=== PATIENT | female | born 1950 | race Caucasian/White ===

== ENCOUNTER → 2016-08-16 | Outpatient (CLI) | payer MEDICARE ==
[2016-08-16 07:07] LABS: Blood Urea Nitrogen 11 mg/dL (7-17); Non-African American GFR(MDRD) >60 (>60 ml/min/1.73 sqM)
--- NOTE | 2016-08-16 08:59 | CT ---
EXAMINATION TYPE: CT abdomen pelvis w con DATE OF EXAM: 08/16/2016 REFERENCE: NONE HISTORY: R10.31 RLQ pain HISTORY: RLQ pain REFERENCE: NONE CT DLP: 1977.4 mGy Automated exposure control for dose reduction was used. TECHNIQUE: Helical acquisition through the abdomen and pelvis was obtained following the oral ingesti on of with Oral Contrast and following intravenous administration of 100 mL of Omnipaque 300. The agata a was reformatted in axial, coronal and sagittal projections. FINDINGS: Visualized portions of the lungs are clear. There is no pleural or pericardial fluid. The heart is not enlarged. Within the abdomen, there is mild fatty infiltration of the liver. The gallbladder is been removed. T he spleen is unremarkable. There is a small splenule just inferior to the inferior tip of the spleen. Both adrenal glands are normal. Both kidneys demonstrate function and appear morphologically normal. The pancreas is unremarkable. There is no significant retroperitoneal, iliac or inguinal adenopathy. The uterus and ovaries are normal. The bladder is unremarkable. There is diverticular change involving the sigmoid colon with scattered diverticula elsewhere through out the left side of the colon. The appendix is unremarkable. Small bowel loops are normal. There is no free fluid and no free air identified. There is mild hypertrophic spondylosis within the spine. There is facet arthropathy in the lower lumb ar spine. No bony destructive lesion is seen. IMPRESSION: 1. MILD FATTY INFILTRATION OF THE LIVER. 2. NORMAL APPENDIX. 3. UNCOMPLICATED DIVERTICULOSIS OF THE LEFT SIDE OF THE COLON. 4. DEGENERATIVE CHANGE WITHIN THE SPINE.
== END ==
LOC: RADCTMAIN 06:35
PROVIDERS: ATTEND Surgery
DX: K57.30 Diverticulosis of large intestine without perforation or abscess without bleeding (principal); K76.0 Fatty (change of) liver, not elsewhere classified
CPT/HCPCS: 82565; 84520; 74177; 36415; Q9967

== ENCOUNTER → 2019-11-09 | Outpatient (CLI) | payer MEDICARE ==
--- NOTE | 2019-11-13 09:15 | PE ---
EXAMINATION TYPE: PET CT fusion skull to thigh DATE OF EXAM: 11/09/2019 COMPARISON: Outside institution CT chest abdomen pelvis 11/15/2017 Prior PET/CT: None at our institution HISTORY: Endometrial cancer TECHNIQUE: Following the intravenous administration of 10.86 mCi of F-18 FDG, whole body images are performed from the skull base to the midthigh. Images are reviewed on the computer in the coronal, a xial, and sagittal planes. Reconstructed rotating images are created on independent workstation and reviewed on the computer. A localization and attenuation correction CT is performed in conjunction with the PET scan. SCAN: Subsequent Scan Blood glucose: 138 mg/dL FINDINGS: NECK: No abnormal hypermetabolic activity. THORAX: No abnormal hypermetabolic activity. ABDOMEN/PELVIS: Within the left pelvic wall there is a 2.2 x 3.3 cm hypermetabolic soft tissue mass ( 3:206), which is anterolateral to the rectum with loss of fat plane and appears contiguous with the l eft vaginal cuff, and not seen on 11/15/2017 CT comparison. OSSEOUS STRUCTURES: No abnormal hypermetabolic activity. No aggressive osseous destructive lesions. LOCALIZATION CT: Fluid density within the mediastinum likely represents small focal pericardial fluid within a superio r recess, not lymphadenopathy, and demonstrates no hypermetabolic activity. No evidence of lung mass or pleural effusion. Status post hysterectomy and oophorectomy. Left common iliac enlarged lymph node measures 1.7 x 1.9 c m with no hypermetabolic activity (3:179), previously measuring 2.1 x 2.4 cm on 11/15/2017 comparison. Degenerative changes of the spine. IMPRESSION: 1. 2.2 x 3.3 cm hypermetabolic soft tissue mass of the left pelvic wall most likely recurrent/metasta tic endometrial cancer, which is new from 11/15/[address] comparison[address] No prior PET CTs available for comparison. The mass is contiguous with the left vaginal cuff, and contacts the anterolateral lef t rectum with loss of fat plane. 2. Left common iliac enlarged lymph node measures 1.7 x 1.9 cm, with no hypermetabolic activity, is d ecreased in size versus 11/15/2017 comparison. 3. No evidence of metastatic disease within the neck, thorax, or osseous structures.
== END | disposition home or self-care (01) ==
LOC: RADPETMAIN 15:39
PROVIDERS: ATTEND Internal Medicine Hematology & Oncology
DX: R19.00 Intra-abdominal and pelvic swelling, mass and lump, unspecified site (principal); R59.0 Localized enlarged lymph nodes; C54.1 Malignant neoplasm of endometrium
CPT/HCPCS: 78815; A9552

== ENCOUNTER → 2019-12-28 | Outpatient (CLI) | payer MEDICARE ==
[2019-12-28 12:28] LABS: African American GFR (CKD) >90 (>60 ml/min/1.73 sqM); Blood Urea Nitrogen 11 mg/dL (7-17); Non-African American GFR(CKD) >90 (>60 ml/min/1.73 sqM)
--- NOTE | 2019-12-28 18:12 | CT ---
EXAMINATION TYPE: CT ChestAbdPelvis w con DATE OF EXAM: 12/28/2019 COMPARISON: PET/CT 11/09/2019 HISTORY: No complaints at time of scan. Follow up cancer. Endometrial cancer. CT DLP: 1996.2 mGycm Automated exposure control for dose reduction was used. CONTRAST: CT scan of the chest, abdomen and pelvis is performed with Oral Contrast and with IV Contrast, patien t injected with 100 mL of Isovue 300. FINDINGS: LUNGS: Lungs are grossly clear. No concerning parenchymal mass or nodule identified. There is a 2 mm pulmonary nodule of the right lower lobe (4:38) which is unchanged versus 11/15/2017 CT comparison and most likely benign. No pleural effusion. No pneumothorax. The tracheobronchial tree is patent. MEDIASTINUM/SOFT TISSUES: No axillary, hilar, or mediastinal lymphadenopathy greater than 1 cm. Cardi ac size is normal. No pericardial effusion. No thoracic aortic aneurysm. LIVER: Normal. BILIARY SYSTEM: Status post cholecystectomy. No intrahepatic or extrahepatic biliary ductal dilatatio n. PANCREAS: Normal. SPLEEN: Normal. Splenule. ADRENALS: Normal. KIDNEYS: Normal. BOWEL: No evidence of obstruction or thickening. Left pelvic soft tissue mass again abuts the daksha lateral left mid rectum with loss of fat plane, and questionable invasion within the rectal wall (3:1 01). Colonic diverticulosis. No acute diverticulitis. Normal appendix. PERITONEUM: No pneumoperitoneum. No free fluid. LYMPH NODES: Left common iliac enlarged lymph node measures 1.9 x 2.0 cm (3:82), unchanged versus PET CT comparison, and decreased versus 12/05/2017 CT comparison. This lymph node was not meta bolically active on 11/09/[address] PELVIS: Decompressed urinary bladder. Status post hysterectomy and oophorectomy. 2.3 x 3.4 cm left pe lvic soft tissue mass contiguous with the left lateral vaginal cuff, pelvic sidewall, and the anterol ateral left mid rectum (3:100). This mass previously measured 2.2 x 3.3 cm on 11/09/[address] compar suzanne and with hypermetabolic. Adjacent inflammatory change of the fat is similar. There is questionab le invasion of the mid anterolateral left rectum (3:101). There is nodular thickening of the inferola teral pelvic wall superolateral to the mass which is unchanged versus 11/09/2019 (3:97). VASCULATURE: No abdominal aortic aneurysm. Moderate calcified atherosclerotic disease. MUSCULOSKELETAL: No aggressive osseous destructive lesions. Degenerative changes of the spine. Calci fication of the left buttock likely injection granuloma. IMPRESSION: 1. Left pelvic mass is similar to minimally increased in size versus PET CT comparison, measuring 2. 3 x 3.4 cm, previously 2.2 x 3.3 cm on 11/09/2019. Questionable invasion of the adjacent anterolateral mid rectal wall. Adjacent peritoneal nodularity of the left pelvic wall is unchanged versus 0. 2. Left common iliac enlarged lymph node unchanged versus 11/09/2019, and decreased versus 11/15/2017. 3. No evidence of metastatic endometrial cancer within the chest, abdomen, or osseous structures.
== END | disposition home or self-care (01) ==
LOC: RADCTMAIN 11:41
PROVIDERS: ATTEND Obstetrics & Gynecology
DX: R59.0 Localized enlarged lymph nodes (principal); C54.1 Malignant neoplasm of endometrium
CPT/HCPCS: 82565; 84520; 71260; 74177; 36415; Q9967

== ENCOUNTER → 2020-08-12 | Outpatient (CLI) | payer MEDICARE ==
--- NOTE | 2020-08-12 17:20 | ECHOF ---
Referral Reason:R60.0 Edema lower extremity MEASUREMENTS -------- HEIGHT: 165.1 cm WEIGHT: 108.9 kg BP: RVIDd: 3.1 cm (< 3.3) IVSd: 1.1 cm (0.6 - 1.1) LVIDd: 4.1 cm (3.9 - 5.3) LVPWd: 1.2 cm (0.6 - 1.1) IVSs: 1.5 cm LVIDs: 2.9 cm LVPWs: 1.6 cm LA Diam: 3.2 cm (2.7 - 3.8) Ao Diam: 3.2 cm (2.0 - 3.7) AV Cusp: 2.0 cm (1.5 - 2.6) MV EXCURSION: 13.644 mm (> 18.000) MV EF SLOPE: 78 mm/s (70 - 150) EPSS: 0.3 cm MV E Dao: 1.03 m/s MV DecT: 204 ms MV A Dao: 1.24 m/s MV E/A Ratio: 0.83 RAP: 5.00 mmHg RVSP: 30.53 mmHg FINDINGS -------- Sinus rhythm. This was a technically difficult study with suboptimal apical views. The left ventricular size is normal. There is borderline concentric left ventricular hypertrophy. Overall left ventricular systolic function is normal with, an EF between 60 - 65 %. The right ventricle is normal in size and function. The left atrium is normal in size. The right atrium is normal in size. Interatrial and interventricular septum intact. The aortic valve is trileaflet, and appears structurally normal. No aortic stenosis or regurgitation. The mitral valve is normal. Mild tricuspid regurgitation present. Right ventricular systolic pressure is normal at < 35 mmHg. The pulmonic valve is normal. The aortic root size is normal. Normal inferior vena cava with normal inspiratory collapse consistent with estimated right atrial pre ssure of 5 mmHg. There is no pericardial effusion. CONCLUSIONS -------- 1. The left ventricular size is normal. 2. There is borderline concentric left ventricular hypertrophy. 3. Overall left ventricular systolic function is normal with, an EF between 60 - 65 %. 4. The aortic valve is trileaflet, and appears structurally normal. No aortic stenosis or regurgitati on. 5. Mild tricuspid regurgitation present. 6. There is no pericardial effusion. [employer]: Sunshine Alvarez RDCS
== END | disposition home or self-care (01) ==
LOC: RADECHMAIN 14:54
PROVIDERS: ATTEND Internal Medicine
DX: I07.1 Rheumatic tricuspid insufficiency (principal)
CPT/HCPCS: 93306

== ENCOUNTER → 2020-08-21 | Outpatient (CLI) | payer MEDICARE ==
--- NOTE | 2020-08-21 16:38 | BD ---
EXAMINATION TYPE: Axial Bone Density DATE OF EXAM: 08/21/2020 COMPARISON: NONE CLINICAL HISTORY: Height: 63 Weight: 239.3 FRAX RISK QUESTIONS: Alcohol (3 or more units per day): no Family History (Parent hip fracture): no Glucocorticoids (More than 3mos): no (Ex: prednisone, prednisolone, methylprednisolone, dexamethasone, and hydrocortisone). History of Fracture in Adulthood: no Secondary Osteoporosis: 1. Type 1 Diabetes: no 2. Hyperthyroidism: no 3. Menopause before 45: no 4. Malnutrition: no 5. Chronic liver disease: no Rheumatoid Arthritis: no Current Tobacco Use: yes RISK FACTORS HISTORY OF: Surgery to Spine/Hip(right/left)/Wrist (right/left): no Family History of Osteoporosis: no Active: no Diet low in dairy products/other sources of calcium: no Postmenopausal woman: age 48 Lost more than 2 inches in height since high school: yes MEDICATIONS: type 2 diabetic meds, breathing meds, anti-depressant Additional History: EXAM MEASUREMENTS: Bone mineral densitometry was performed using the [place] System. Bone mineral density as measured about the Lumbar spine is: ----- L1-L4(G/cm2): 1.096 T Score Values are as follows: ----- L2: -1.6 ----- L3: -0.8 ----- L4: 0.7 ----- L1-L4: -0.7 Bone mineral density baseline Bone mineral density about the R hip (g/cm2): 0.726 Bone mineral density about the L hip (g/cm2): 0.736 T Score values are as follows: -----R Neck: -2.2 -----L Neck: -2.2 -----R Total: -1.3 -----L Total: -1.8 Bone mineral density : baseline IMPRESSION: Osteopenia (T Score between -2.5 and -1). There is slightly increased risk of fracture and the patient may be considered for treatment. Re-Screen 2-5 years. NOTE: T-SCORE=SD OF THE YOUNG ADULT MEAN.
--- NOTE | 2020-08-27 10:49 | MM ---
Reason for exam: screening (asymptomatic). Last mammogram was performed 2 years and 7 months ago. History: Patient is postmenopausal. Physical Findings: A clinical breast exam by your physician is recommended on an annual basis and results should be correlated with mammographic findings. MG 3D Screening Mammo W/Cad Bilateral CC and MLO view(s) were taken. Prior study comparison: January 31, 2018, mammogram. May 25, 2016, mammogram. There are scattered fibroglandular densities. No significant changes when compared with prior studies. ASSESSMENT: Benign, BI-RAD 2 RECOMMENDATION: Routine screening mammogram of both breasts in 1 year.
== END | disposition home or self-care (01) ==
LOC: RADMAMWWP 13:43
PROVIDERS: ATTEND Internal Medicine
DX: Z12.31 Encounter for screening mammogram for malignant neoplasm of breast (principal); Z13.820 Encounter for screening for osteoporosis; M85.80 Other specified disorders of bone density and structure, unspecified site; Z78.0 Asymptomatic menopausal state
CPT/HCPCS: 77063; 77067; 77080

== ENCOUNTER → 2021-09-03 | Outpatient (CLI) | payer MEDICARE, OTHER ==
[~2021-09-03] MED LIST: ONDANSETRON 16 MG in SODIUM CHLORIDE 0.9% 50 ML IVPB ONE; SODIUM CHLORIDE 0.9% 1,000 ML IV ONE; SODIUM CHLORIDE 0.9% 500 ML 500 ML in EMPTY BAG 1 BAG IV PRN
[2021-09-03 10:05] VITALS: BP 87/55; PULSE 93; RESP 16; TEMP 97.8
== END | disposition home or self-care (01) ==
LOC: PROCWHC3 09:40
PROVIDERS: ATTEND Internal Medicine Hematology & Oncology
DX: C54.1 Malignant neoplasm of endometrium (principal)
CPT/HCPCS: 96360; 96361; 96366; J2405

== ENCOUNTER 2021-10-15 13:47 | Inpatient (IN) | payer MEDICARE, OTHER ==
[2021-10-15] MEDS ORDERED: ONDANSETRON 4 MG/2 ML VIAL IVP STA (14:09)
[2021-10-15] MEDS ORDERED: SODIUM CHLORIDE 0.9% 1,000 ML IV STA ×2 (14:09→16:56)
[2021-10-15] MEDS ORDERED: MORPHINE SULFATE 4 MG/ML SYRINGE IV STA (14:09)
[2021-10-15] MEDS ORDERED: diphenhydrAMINE 50 MG/ML 1 ML VIAL IVP STA (14:10)
[2021-10-15 15:10] LABS: Albumin 3.1 g/dL (3.5-5.0); Calcium 8.2 mg/dL (8.4-10.2); Partial Thromboplastin Time 24.4 sec (22.0-30.0); Prothrombin Time 10.8 sec (9.0-12.0); Total Bilirubin 2.6 mg/dL (0.2-1.3)
[2021-10-15 15:11] LABS: Magnesium 1.3 mg/dL (1.6-2.3)
[2021-10-15 15:14] LABS: HCT 26.2 % (34.0-46.0); HGB 9.4 gm/dL (11.4-16.0); MCH 33.4 pg (25.0-35.0); MCHC 35.8 g/dL (31.0-37.0); MCV 93.2 fL (80.0-100.0); Mean Platelet Volume 9.9; RBC 2.81 m/uL (3.80-5.40)
[2021-10-15] MEDS ORDERED: MAGNESIUM SULFATE-D5W PMX 1 GM in DEXTROSE/WATER 1 100ML.BAG IVPB ONE (15:17)
[2021-10-15] MEDS ORDERED: POTASSIUM CHLORIDE ER 20 MEQ TAB.ER PO STA (15:36)
--- NOTE | 2021-10-15 15:46 | XR ---
EXAMINATION TYPE: XR chest 2V DATE OF EXAM: 10/15/2021 COMPARISON: Whole-body CT December 28, 2019 HISTORY: Weakness. History of endometrial cancer. TECHNIQUE: Frontal and lateral views of the chest are obtained. FINDINGS: There is mild chronic parenchymal change bilaterally without suspicious new focal air spac e opacity, pleural effusion, or pneumothorax seen. The cardiac silhouette size is stable and within normal limits with atherosclerotic change aortic knob redemonstrated. The osseous structures are in tact. IMPRESSION: No acute process.
[2021-10-15 15:50] LABS: Platelet Count 87 k/uL (150-450); WBC 0.4 k/uL (3.8-10.6)
[2021-10-15] MEDS ORDERED: NALOXONE 0.4 MG/ML 1 ML VIAL IV PRN (16:54)
[2021-10-15] MEDS ORDERED: SODIUM CHLORIDE 0.9% 500 ML 500 ML IV STA (16:56)
[2021-10-15] MEDS ORDERED: ALBUTEROL NEBULIZED 2.5 MG/3 ML INHALATION PRN ×2 (16:56→17:46)
[2021-10-15] MEDS ORDERED: VANCOMYCIN IV PER PHARMACY 1 EACH MISC MISCELLANE PRN (16:58)
[2021-10-15] MEDS ORDERED: VANCOMYCIN 1,500 MG in SODIUM CHLORIDE 0.9% 250 ML IVPB STA (17:11)
[2021-10-15] MEDS ORDERED: CEFEPIME 2 GM in SODIUM CHLORIDE 0.9% 100 ML IVPB ONE (17:30)
--- NOTE | 2021-10-15 17:51 | ED ---
General Adult HPI - General Chief complaint: Weakness Stated complaint: Dehydration Time Seen by Provider: 10/15/21 14:00 Source: patient, EMS, RN notes reviewed, old records reviewed Mode of arrival: EMS Limitations: no limitations - History of Present Illness Initial comments: Patient is a 71-year-old female with past medical history remarkable for stage IV endometrial cancer currently undergoing chemotherapy, diabetes, asthma who presents emergency Department complaining of intractable nausea, vomiting, diarrhea since last Tuesday. Last Tuesday she did receive her last chemo treatment. Has been having multiple episodes of nonbilious emesis as well as nonbloody diarrhea since that time. Does state that the diarrhea seems to be coming from mostly her bowels, but there is concern for possibly coming from her vagina. This has been ongoing for the last 4-6 weeks. Was due to follow up with her oncologist in [place] regarding it. Does follow up with Dr. Bowman here in [place]. Denies any chest pain, shortness of breath. Denies any headach es. Endorses generalized weakness. Feels dehydrated. States she is thirsty. Presents over concern for worsening symptoms. Endorses generalized abdominal discomfort. It is somewhat chronic for her. - Related Data Home Medications Medication Instructions Recorded Confirmed Calcium Carbonate [Calcium] 600 mg PO DAILY 09/03/21 10/15/21 Cholecalciferol (Vitamin D3) 125 mcg PO DAILY 09/03/21 10/15/21 [Vitamin D3 (125 MCG = 5,000 IU)] HYDROcodone/APAP 5-325MG [[place] 1 tab PO Q4H PRN 09/03/21 10/15/21 5-325] Ondansetron [Zofran] 4 mg PO Q4H PRN 09/03/21 10/15/21 RX: Albuterol Inhaler [Ventolin 2 puff INHALATION RT-Q6H PRN 09/03/21 10/15/21 Hfa Inhaler] RX: Atorvastatin [Lipitor] 10 mg PO HS 09/03/21 10/15/21 RX: Pioglitazone [Actos] 30 mg PO DAILY 09/03/21 10/15/21 Tiotropium 18 Mcg/Puff [Spiriva] 1 puff INHALATION RT-DAILY 09/03/21 10/15/21 Dorzolamide HCl/Pf [Dorzolamide 2% 1 drop BOTH EYES BID 10/15/21 10/15/21 Eye Drop] Gabapentin [Neurontin] 100 mg PO BID 10/15/21 10/15/21 Glimepiride [Amaryl] 2 mg PO HS 10/15/21 10/15/21 Glimepiride [Amaryl] 4 mg PO DAILY 10/15/21 10/15/21 Multivitamins, Thera [Multivitamin 1 tab PO DAILY 10/15/21 10/15/21 (formulary)] Olopatadine HCl [Patanol 0.1%] 1 drop BOTH EYES BID 10/15/21 10/15/21 Quinapril/Hydrochlorothiazide 1 tab PO DAILY 10/15/21 10/15/21 [Quinapril-Hctz 20-25 mg Tab] Allergies Allergy/AdvReac Type Severity Reaction Status Date / Time metformin Allergy Rash/Hives Verified 09/03/21 09:46 Review of Systems ROS Statement: Those systems with pertinent positive or pertinent negative responses have been documented in the HPI. Review of Systems: CONST: Denies fever EYES: Denies blurry vision ENT: Denies nasal congestion C/V: Denies Chest pain RESP: Denies shortness of breath GI: Endorses abdominal pain, nausea, vomiting : Denies dysuria SKIN: Denies rash. MSK: Denies joint pain. NEURO: Denies headache ROS Other: All systems not noted in ROS Statement are negative. Past Medical History Past Medical History: Asthma, Cancer, Diabetes Mellitus, Hyperlipidemia, Osteoarthritis (OA), Pneumonia Additional Past Medical History / Comment(s): ENDOMETRIAL CANCER. History of Any Multi-Drug Resistant Organisms: None Reported Past Surgical History: Cholecystectomy, Hysterectomy, Tubal Ligation Past Anesthesia/Blood Transfusion Reactions: No Reported Reaction Past Psychological History: No Psychological Hx Reported Smoking Status: Current every day smoker Past Alcohol Use History: None Reported Past Drug Use History: Marijuana General Exam - General Exam Comments Initial Comments: General: Appears in no acute distress. Patient is afebrile. HEAD: Normal with no signs of head trauma. EYES: PERRLA, EOMI, conjunctiva normal, no discharge. ENT: Hearing grossly intact, normal oropharynx. RESPIRATORY: Clear breath sounds bilaterally. No wheezes, rales, or rhonchi. C/V: Regular rate and rhythm. S1 and S2 auscultated, no edema, peripheral pulses 2+ and intact throughout ABD: Abdomen is soft, distended. Tender to palpation bilateral lower quadrants, which patient states is somewhat chronic for her. No guarding. No peritoneal signs. No rebound tenderness. EXT: Normal range of motion, no obvious deformity SKIN: No rashes or lesions observed on exposed skin. NEURO: Alert and oriented 4. No focal deficits. Limitations: no limitations Course Vital Signs 10/15/21 10/15/21 13:50 19:27 Temperature 99.0 F Pulse Rate 82 96 Respiratory 18 16 Rate Blood Pressure 114/69 131/67 O2 Sat by Pulse 100 99 Oximetry Medical Decision Making - Medical Decision Making Based on the patient's presentation and physical exam, concern for intractable nausea, vomiting, diarrhea the patient currently undergoing chemotherapy. Is likely secondary to the chemo, however it seems to be worse since her last round of chemo. Did recommend we obtain abdominal laboratory studies as well as symptomatically treated with IV fluids and medications to start. She was in agreement this plan. She is afebrile and has no signs of infection right now. Vital signs are otherwise within normal limits. She was in agreement this plan. Screening EKG 5 and no signs of acute ischemia. No prior EKG for comparison. Laboratory studies are remarkable for a leukopenia of 0.4 which is expected with recent chemotherapy, normocytic anemia with hemoglobin 9.4, thrombocytopenia at 87. These findings are expected with her recent chemo. Patient appears dehydrated with hyponatremia of 125, hypokalemia at 3.0 which is replenished, hypochloremia of 89. Patient is also hypomagnesemia to 1.3 which is replenished. Covid influenza negative. On reevaluation and patient is feeling improved. Discussed with her I would like to admit her. She was in agreement this plan. I did discuss the case with the on-call oncology mid-level provider, Юлия who was in agreement with this plan. We discussed antibiotics, and due to her tenderness, we will start the antibiotics and she was started on broad-spectrum vancomycin and cefepime. Also obtain a CT to further evaluate the patient's diarrhea, she states it may be coming from her vagina. She was due to have an outpatient CT but we will obtain one here. She was in agreement this plan. Spoke with the admitting physician, Dr. George who was in agreement this plan. CT returned and revealed findings consistent for worsening cancer in the colon, as well as a rectovaginal fistula. I discussed the findings with Dr. Owens of surgery. He agreed to consult. Consult was already placed by the admitting team. In the triage note, did state that the patient's feeling suicidal. I did speak with her about this, and she states that with her diagnosis and her treatments, and occasional she does feel suicidal but has no plans or attempts. Did recommend that psychiatry speak with her while she is here and she was in agreement with the plan. Sitter order will be placed. Suicide precautions ordered. Will consult psychiatry. - Lab Data Result diagrams: 10/15/21 14:22 10/15/21 14:22 Lab Results 10/15/21 10/15/21 10/15/21 Range/Units 14:22 14:22 14:22 WBC 0.4 L* (3.8-10.6) k/uL RBC 2.81 L (3.80-5.40) m/uL Hgb 9.4 L (11.4-16.0) gm/dL Hct 26.2 L (34.0-46.0) % MCV 93.2 (80.0-100.0) fL MCH 33.4 (25.0-35.0) pg MCHC 35.8 (31.0-37.0) g/dL RDW 15.0 (11.5-15.5) % Plt Count 87 L (150-450) k/uL MPV 9.9 Neutrophils # (Manual) (1.3-7.7) k/uL PT 10.8 (9.0-12.0) sec INR 1.0 (<1.2) APTT 24.4 (22.0-30.0) sec Sodium 125 L (137-145) mmol/L Potassium 3.0 L (3.5-5.1) mmol/L Chloride 89 L (98-107) mmol/L Carbon Dioxide 25 (22-30) mmol/L Anion Gap 11 mmol/L BUN 34 H (7-17) mg/dL Creatinine 0.80 (0.52-1.04) mg/dL Est GFR (CKD-EPI)AfAm 85 (>60 ml/min/1.73 sqM) Est GFR (CKD-EPI)NonAf 74 (>60 ml/min/1.73 sqM) Glucose 264 H (74-99) mg/dL Plasma Lactic Acid Faheem (0.7-2.0) mmol/L Calcium 8.2 L (8.4-10.2) mg/dL Magnesium 1.3 L (1.6-2.3) mg/dL Total Bilirubin 2.6 H (0.2-1.3) mg/dL AST 19 (14-36) U/L ALT 13 (4-34) U/L Alkaline Phosphatase 83 (38-126) U/L Total Protein 6.0 L (6.3-8.2) g/dL Albumin 3.1 L (3.5-5.0) g/dL Coronavirus (PCR) (Not Detectd) Influenza Type A RNA (Not Detectd) Influenza Type B (PCR) (Not Detectd) 10/15/21 10/15/21 10/15/21 Range/Units 14:22 14:22 14:22 WBC (3.8-10.6) k/uL RBC (3.80-5.40) m/uL Hgb (11.4-16.0) gm/dL Hct (34.0-46.0) % MCV (80.0-100.0) fL MCH (25.0-35.0) pg MCHC (31.0-37.0) g/dL RDW (11.5-15.5) % Plt Count (150-450) k/uL MPV Neutrophils # (Manual) (1.3-7.7) k/uL PT (9.0-12.0) sec INR (<1.2) APTT (22.0-30.0) sec Sodium (137-145) mmol/L Potassium (3.5-5.1) mmol/L Chloride (98-107) mmol/L Carbon Dioxide (22-30) mmol/L Anion Gap mmol/L BUN (7-17) mg/dL Creatinine (0.52-1.04) mg/dL Est GFR (CKD-EPI)AfAm (>60 ml/min/1.73 sqM) Est GFR (CKD-EPI)NonAf (>60 ml/min/1.73 sqM) Glucose (74-99) mg/dL Plasma Lactic Acid Faheem 0.9 (0.7-2.0) mmol/L Calcium (8.4-10.2) mg/dL Magnesium (1.6-2.3) mg/dL Total Bilirubin (0.2-1.3) mg/dL AST (14-36) U/L ALT (4-34) U/L Alkaline Phosphatase (38-126) U/L Total Protein (6.3-8.2) g/dL Albumin (3.5-5.0) g/dL Coronavirus (PCR) Not Detected (Not Detectd) Influenza Type A RNA Not Detected (Not Detectd) Influenza Type B (PCR) Not Detected (Not Detectd) - EKG Data -: EKG Interpreted by Me EKG Comments: 12-lead Electrocardiogram Interpretation Note EKG was reviewed and interpreted by myself. 12-lead ECG performed at 1524 is interpreted by me as revealing normal sinus rhythm at a rate of 87 beats per minute. Patten is normal. ID intervals 119 ms, QRS duration is 130 ms, QTc is 464 ms.. There were no acute ST or T wave abnormalities to suggest myocardial ischemia or injury. His right bundle midpoint. R wave progression across the precordium was satisfactory. By my interpretation this EKG is non-diagnostic for acute ischemia. Critical Care Time Critical Care Time: Yes Total Critical Care Time: 35 Critical Care Time: Upon my evaluation, this patient had a high probability of imminent or life- threatening deterioration due to metastatic cancer, rectovaginal fistula, dehydration, intractable nausea and vomiting, diarrhea, which required my direct attention, intervention, and personal management. I have personally provided 35 minutes of critical care time exclusive of time spent on separately billable procedures. Time includes review of laboratory data, radiology results, discussion with consultants, and monitoring for potential decompensation. Interventions were performed as documented in my note. Disposition Clinical Impression: Intractable nausea and vomiting, Intractable diarrhea, Dehydration, History of cancer, Suicidal ideations, Chronic abdominal pain, Hyponatremia, Hypokalemia, Hypomagnesemia Disposition: ADMITTED IP TO THIS HOSP Condition: Stable Time of Disposition: 16:45
--- NOTE | 2021-10-15 18:22 | P.HPIM ---
History of Present Illness H&P Date: 10/15/21 Chief Complaint: Diarrhea, fevers, chills 71-year-old woman with a history of metastatic endometrial cancer, hypertension, diabetes, hyperlipidemia, glaucoma presented with diarrhea, fevers, chills. Patient says that she got her last chemotherapy treatment approximately a week and a half ago, and since that time she's had worsening diarrhea, chills, fevers and has had poor by mouth intake. She says that she's never had a reaction this bad to her chemotherapy before. She also endorses having stool in her urine and coming through her vagina, which has been present for approximately 4 weeks. She has a history of radiation to the pelvis, but has never had surgery in the area. She's had endometrial cancer for approximately 3 years and has been on multiple chemotherapy regimens, but unfortunately it has progressed. She reports fevers, chills, nausea. She denies vomiting. She denies chest pain, palpitations, syncope, presyncope, cough, dyspnea. She reports abdominal pain, diarrhea. She reports dysuria. She denies melena, hematochezia. She reports numbness of her right arm intermittently. In the emergency room, patient is afebrile, 114/69, heart rate 82, 100% on room air. CBC is significant for pancytopenia with a white blood cell count 0.4, hemoglobin of 9.4, platelet count of 87. Chemistry show hyponatremia and hypokalemia with a sodium of 125, adjusting of 3.0. She also has low magnesium at 1.3. Liver function tests show elevated bilirubin at 2.6, total protein of 6.0, albumin of 3.1. Covid was negative. Influenza A/B were negative. Coags are negative. Chest x-ray was negative for any acute processes, she'll some mild chronic parenchymal change bilaterally. Abdomen/pelvis CT was ordered and read is pending. ER physician contacted oncology who recommended patient be admitted with IV fluids, antibiotics, filgastrim. All Systems reviewed and pertinent positives and negatives noted in HPI, all other symptoms are negative Gen: in no apparent distress, resting comfortably in bed Eyes: PERRL, no scleral injection or icterus HENT: normocephalic, atraumatic, good hearing acuity, dry mucous membranes Neck: no tracheal deviation, full range of motion Resp: good air exchange, breathing comfortably with no accessory muscle use, no tactile fremitus CVS: good distal perfusion x 4, no pitting edema GI: soft, tender to palpation diffusely, worse in the right lower quadrant and left lower quadrant, ND, no hepatosplenomegaly : no suprapubic tenderness, no CVAT, becerril catheter not present MSK: no clubbing, no cyanosis, no noted contractures of extremities Skin: no noted rashes, petechiae; temperature of skin is appropriate Neuro: moving all extremities without signs of weakness, CN II-XII intact Psych: cooperative, euthymic mood, insight and judgment intact Labs and imaging reviewed as above Assessment/plan: Pancytopenia Diarrhea (suspect radiation induced colitis) History of endometrial cancer, metastatic Hyperbilirubinemia -Admit inpatient, telemetry -Daily CBC -Oncology consult -IV fluids -PT/OT -Pending workup, patient will benefit from out of care consult -Pain control -Nausea control Hyponatremia Hypokalemia Hypomagnesemia -Replete as needed -IV fluids Colovesicular fistula Colovaginal fistula (Suspected, pending CT abdomen/pelvis read) -If positive, will consult general surgery Hypertension Diabetes Hyperlipidemia Glaucoma -Home medications reviewed and reconciled -Hold home HCTZ, hold home oral glycemics -LD SSI Past Medical History Past Medical History: Asthma, Cancer, Diabetes Mellitus, Hyperlipidemia, Osteoarthritis (OA), Pneumonia Additional Past Medical History / Comment(s): ENDOMETRIAL CANCER. History of Any Multi-Drug Resistant Organisms: None Reported Past Surgical History: Cholecystectomy, Hysterectomy, Tubal Ligation Past Anesthesia/Blood Transfusion Reactions: No Reported Reaction Past Psychological History: No Psychological Hx Reported Smoking Status: Current every day smoker Past Alcohol Use History: None Reported Past Drug Use History: Marijuana Medications and Allergies Home Medications Medication Instructions Recorded Confirmed Type Albuterol Inhaler [Ventolin Hfa 2 puff INHALATION RT-Q6H PRN 09/03/21 10/15/21 History Inhaler] Atorvastatin [Lipitor] 10 mg PO HS 09/03/21 10/15/21 History Calcium Carbonate [Calcium] 600 mg PO DAILY 09/03/21 10/15/21 History Cholecalciferol (Vitamin D3) 125 mcg PO DAILY 09/03/21 10/15/21 History [Vitamin D3 (125 MCG = 5,000 IU)] HYDROcodone/APAP 5-325MG [[place] 1 tab PO Q4H PRN 09/03/21 10/15/21 History 5-325] Ondansetron [Zofran] 4 mg PO Q4H PRN 09/03/21 10/15/21 History Pioglitazone [Actos] 30 mg PO DAILY 09/03/21 10/15/21 History Tiotropium 18 Mcg/Puff [Spiriva] 1 puff INHALATION RT-DAILY 09/03/21 10/15/21 History Dorzolamide HCl/Pf [Dorzolamide 2% 1 drop BOTH EYES BID 10/15/21 10/15/21 History Eye Drop] Gabapentin [Neurontin] 100 mg PO BID 10/15/21 10/15/21 History Glimepiride [Amaryl] 2 mg PO HS 10/15/21 10/15/21 History Glimepiride [Amaryl] 4 mg PO DAILY 10/15/21 10/15/21 History Multivitamins, Thera [Multivitamin 1 tab PO DAILY 10/15/21 10/15/21 History (formulary)] Olopatadine HCl [Patanol 0.1%] 1 drop BOTH EYES BID 10/15/21 10/15/21 History Quinapril/Hydrochlorothiazide 1 tab PO DAILY 10/15/21 10/15/21 History [Quinapril-Hctz 20-25 mg Tab] Allergies Allergy/AdvReac Type Severity Reaction Status Date / Time metformin Allergy Rash/Hives Verified 09/03/21 09:46 Physical Exam Osteopathic Statement: *. No significant issues noted on an osteopathic structural exam other than those noted in the History and Physical/Consult. Vitals: Vital Signs Temp Pulse Resp BP Pulse Ox 10/15/21 13:50 99.0 F 82 18 114/69 100 Intake and Output 10/15/21 10/15/21 10/15/21 06:59 14:59 22:59 Other: Weight 85.729 kg Results CBC & Chem 7: 10/15/21 14:22 10/15/21 14:22 Labs: Abnormal Lab Results - Last 24 Hours (Table) 10/15/21 10/15/21 Range/Units 14:22 14:22 WBC 0.4 L* (3.8-10.6) k/uL RBC 2.81 L (3.80-5.40) m/uL Hgb 9.4 L (11.4-16.0) gm/dL Hct 26.2 L (34.0-46.0) % Plt Count 87 L (150-450) k/uL Sodium 125 L (137-145) mmol/L Potassium 3.0 L (3.5-5.1) mmol/L Chloride 89 L (98-107) mmol/L BUN 34 H (7-17) mg/dL Glucose 264 H (74-99) mg/dL Calcium 8.2 L (8.4-10.2) mg/dL Magnesium 1.3 L (1.6-2.3) mg/dL Total Bilirubin 2.6 H (0.2-1.3) mg/dL Total Protein 6.0 L (6.3-8.2) g/dL Albumin 3.1 L (3.5-5.0) g/dL
--- NOTE | 2021-10-15 19:15 | CT ---
EXAMINATION TYPE: CT abdomen pelvis w con DATE OF EXAM: 10/15/2021 COMPARISON: 12/28/2019 HISTORY: Abdominal pain, pt hx endometiral ca. States feces coming from vagina and urethra. CT DLP: 1320.5 mGycm Automated exposure control for dose reduction was used. TECHNIQUE: Helical acquisition of images was performed from the lung bases through the pelvis. CONTRAST: Performed without Oral Contrast and with IV Contrast, patient injected with 100 mL of Isovue 300. FINDINGS: LUNG BASES: No significant abnormality is appreciated. LIVER/GB: No significant abnormality is appreciated. Hepatic steatosis and cholecystectomy without si gnificant biliary ductal dilatation. PANCREAS: No significant abnormality is seen. SPLEEN: No significant abnormality is seen. ADRENALS: No significant abnormality is seen. KIDNEYS: Mild bilateral hydronephrosis without obstructing calculi or nephrolithiasis seen. FREE AIR: No free air is visualized RETROPERITONEAL ADENOPATHY: None visualized REPRODUCTIVE ORGANS: No significant abnormality is seen URINARY BLADDER: Mild urinary bladder wall thickening. PELVIC ADENOPATHY: None visualized. OSSEOUS STRUCTURES: No significant abnormality is seen. BOWEL: Moderate to marked circumferential wall thickening of the rectum resulting in luminal narrowi ng. The rectal wall and abuts the vagina. Gas is seen within the vagina, which is nonspecific. There is moderate to large amount of stool in the left colon. Mild fluid distention of the of the ascending and transverse colon. The small bowel loops are within normal limits. Normal appendix. No free air o r significant free fluid. Small fat-containing periumbilical hernia. OTHER: None IMPRESSION: RECTAL WALL THICKENING WITH LUMINAL NARROWING AND RESULTANT STOOL BURDEN AND MILD COLONIC DISTENTION. Findings raise concern for colonic obstruction. Malignancy cannot be excluded. Consider GI consultat ion and/or colonoscopy when feasible. Rectal wall abuts the vagina with gas versus fecal material within the vagina. Findings are concernin g for rectovaginal fistula. However this is better evaluated and can be confirmed with intraluminal c ontrast administration. Bilateral hydronephrosis without obstructing calculi. Considerations include urinary bladder outlet o bstruction versus reactive changes secondary to pelvic pathology. Findings are new compared to prior 2019 study.
[2021-10-15 19:23] LABS: Glucose,Whole Blood 289 mg/dL (70-110)
[2021-10-15] MEDS ORDERED: GLIMEPIRIDE 2 MG TAB PO SCH (21:00)
[2021-10-15] MEDS: metroNIDAZOLE-NS PMX 500 MG in SALINE 1 100ML.BAG IVPB SCH (22:04)
[2021-10-15] MEDS: ONDANSETRON 4 MG/2 ML VIAL IVP PRN (22:05)
[2021-10-15] MEDS: ATORVASTATIN 10 MG TAB PO SCH (22:05)
[2021-10-15] MEDS: GABAPENTIN 100 MG CAP PO SCH (22:06)
[2021-10-15] MEDS: MORPHINE SULFATE 4 MG/ML SYRINGE IVP PRN (22:12)
[2021-10-16] MEDS: FILGRASTIM-SNDZ 480 MCG/0.8 ML SYRINGE SQ SCH ×2 (00:35→18:10)
[2021-10-16] MEDS: DORZOLAMIDE HCL 2% DROPS 10 ML BTL BOTH EYES SCH ×3 (00:36→21:02)
[2021-10-16] MEDS: KETOTIFEN 0.025% OPHTH DROPS 5 ML BTL BOTH EYES SCH ×3 (00:36→21:02)
[2021-10-16] MEDS: metroNIDAZOLE-NS PMX 500 MG in SALINE 1 100ML.BAG IVPB SCH ×5 (00:39→23:27)
[2021-10-16] MEDS: ONDANSETRON 4 MG/2 ML VIAL IVP PRN (04:16)
[2021-10-16] MEDS: MORPHINE SULFATE 4 MG/ML SYRINGE IVP PRN ×2 (04:16→21:09)
[2021-10-16 07:27] LABS: Glucose,Whole Blood 241 mg/dL (70-110)
[2021-10-16] MEDS: GABAPENTIN 100 MG CAP PO SCH ×2 (08:06→21:01)
[2021-10-16] MEDS: INSULIN ASPART (NovoLOG) 100 UNIT/ML VIAL SQ SCH ×3 (08:07→18:10)
[2021-10-16] MEDS: lisinopriL 20 MG TAB PO SCH (08:07)
[2021-10-16] MEDS: CEFEPIME 2 GM in SODIUM CHLORIDE 0.9% 100 ML IVPB SCH ×4 (08:29→21:02)
[2021-10-16] MEDS ORDERED: hydroCHLOROthiazide 25 MG TAB PO SCH (09:00)
[2021-10-16] MEDS ORDERED: PIOGLITAZONE 30 MG TAB PO SCH (09:00)
[2021-10-16] MEDS ORDERED: GLIMEPIRIDE 2 MG TAB PO SCH (09:00)
[2021-10-16] MEDS: VANCOMYCIN 1,500 MG in SODIUM CHLORIDE 0.9% 250 ML IVPB SCH (10:20)
[2021-10-16 10:22] LABS: HCT 25.1 % (37.2-46.3); HGB 8.3 g/dL (12.0-15.0); MCH 30.9 pg (27.0-32.0); MCHC 33.1 g/dL (32.0-37.0); MCV 93.3 fL (80.0-97.0); Mean Platelet Volume 12.6 fL (9.5-12.2); NRBC Per 100 WBC 0 /100 WBCS (0.0-0.0); Platelet Count 58 X 10*3/uL (140-440); RBC 2.69 X 10*6/uL (4.10-5.20); RDW 15.5 % (11.5-14.5); WBC 0.36 X 10*3/uL (4.50-10.00)
[2021-10-16 10:31] LABS: Basophils # (A) 0 X 10*3/uL (0.00-0.10); Basophils % (A) 0 %; Eosinophils # (A) 0.01 X 10*3/uL (0.04-0.35); Eosinophils % (A) 2.8 %; Immature Grans, Automated 0 %; Lymphocytes # (A) 0.21 X 10*3/uL (0.90-5.00); Lymphocytes % (A) 58.3 %; Monocytes # (A) 0.09 X 10*3/uL (0.20-1.00); Neutrophils # (A) 0.05 X 10*3/uL (1.80-7.70); Neutrophils % (A) 13.9 %; RBC Morphology NORMAL
--- NOTE | 2021-10-16 10:36 | P.PN ---
Subjective Progress Note Date: 10/16/21 CT scan from yesterday with concerns for colitis as well as rectovaginal fistula Gen: in no apparent distress, resting comfortably in bed Eyes: PERRL, no scleral injection or icterus HENT: normocephalic, atraumatic, good hearing acuity, dry mucous membranes Neck: no tracheal deviation, full range of motion Resp: good air exchange, breathing comfortably with no accessory muscle use, no tactile fremitus CVS: good distal perfusion x 4, no pitting edema GI: soft, tender to palpation diffusely, worse in the right lower quadrant and left lower quadrant, ND, no hepatosplenomegaly : no suprapubic tenderness, no CVAT, becerril catheter not present MSK: no clubbing, no cyanosis, no noted contractures of extremities Skin: no noted rashes, petechiae; temperature of skin is appropriate Neuro: moving all extremities without signs of weakness, CN II-XII intact Psych: cooperative, euthymic mood, insight and judgment intact Labs and imaging reviewed as above Assessment/plan: Pancytopenia Diarrhea (suspect radiation induced colitis) History of endometrial cancer, metastatic Hyperbilirubinemia -Admit inpatient, telemetry -Daily CBC -Oncology consult -IV fluids -PT/OT -Pending workup, patient will benefit from out of care consult -Pain control -Nausea control -Continue vancomycin, cefepime, flagyl Hyponatremia Hypokalemia Hypomagnesemia -Replete as needed -IV fluids Rectovaginal fistula -General surgery consulted Hydronephrosis - Urology consult Hypertension Diabetes Hyperlipidemia Glaucoma -Home medications reviewed and reconciled -Hold home HCTZ, hold home oral glycemics -LD SSI Objective - Vital Signs Vital signs: Vital Signs Temp 97.7 F 10/16/21 07:21 Pulse 93 10/16/21 07:21 Resp 16 10/16/21 07:21 BP 97/61 10/16/21 07:21 Pulse Ox 96 10/16/21 07:21 FiO2 Intake & Output 10/15/21 10/16/21 10/16/21 18:59 06:59 18:59 Weight 85.729 kg 85.729 kg Other: # Bowel Movements 1 7 - Labs CBC & Chem 7: 10/16/21 05:10 10/15/21 14:22 Labs: Abnormal Lab Results - Last 24 Hours (Table) 10/15/21 10/15/21 10/15/21 Range/Units 14:22 14:22 19:21 WBC 0.4 L* (3.8-10.6) k/uL RBC 2.81 L (3.80-5.40) m/uL Hgb 9.4 L (11.4-16.0) gm/dL Hct 26.2 L (34.0-46.0) % RDW (11.5-14.5) % Plt Count 87 L (150-450) k/uL Plt Count Comment MPV (9.5-12.2) fL Neutrophils # (1.80-7.70) X 10*3/uL Lymphocytes # (0.90-5.00) X 10*3/uL Monocytes # (0.20-1.00) X 10*3/uL Eosinophils # (0.04-0.35) X 10*3/uL Immature Plt Fraction (1.1-6.1) % Sodium 125 L (137-145) mmol/L Potassium 3.0 L (3.5-5.1) mmol/L Chloride 89 L (98-107) mmol/L BUN 34 H (7-17) mg/dL Glucose 264 H (74-99) mg/dL POC Glucose (mg/dL) 289 H (70-110) mg/dL Calcium 8.2 L (8.4-10.2) mg/dL Magnesium 1.3 L (1.6-2.3) mg/dL Total Bilirubin 2.6 H (0.2-1.3) mg/dL Total Protein 6.0 L (6.3-8.2) g/dL Albumin 3.1 L (3.5-5.0) g/dL Stool Occult Blood (Negative) 10/15/21 10/16/21 10/16/21 Range/Units 20:44 05:10 07:21 WBC 0.36 L* (3.8-10.6) k/uL RBC 2.69 L (3.80-5.40) m/uL Hgb 8.3 L (11.4-16.0) gm/dL Hct 25.1 L (34.0-46.0) % RDW 15.5 H (11.5-14.5) % Plt Count 58 L (150-450) k/uL Plt Count Comment DECREASED A MPV 12.6 H (9.5-12.2) fL Neutrophils # 0.05 L* (1.80-7.70) X 10*3/uL Lymphocytes # 0.21 L (0.90-5.00) X 10*3/uL Monocytes # 0.09 L (0.20-1.00) X 10*3/uL Eosinophils # 0.01 L (0.04-0.35) X 10*3/uL Immature Plt Fraction 9.0 H (1.1-6.1) % Sodium (137-145) mmol/L Potassium (3.5-5.1) mmol/L Chloride (98-107) mmol/L BUN (7-17) mg/dL Glucose (74-99) mg/dL POC Glucose (mg/dL) 241 H (70-110) mg/dL Calcium (8.4-10.2) mg/dL Magnesium (1.6-2.3) mg/dL Total Bilirubin (0.2-1.3) mg/dL Total Protein (6.3-8.2) g/dL Albumin (3.5-5.0) g/dL Stool Occult Blood Positive H (Negative) Microbiology - Last 24 Hours (Table) 10/15/21 20:44 Stool Culture - Preliminary Stool
[2021-10-16] MEDS: IPRATROPIUM 0.5 MG/2.5 ML NEBU INHALATION SCH ×4 (11:20→19:31)
[2021-10-16 11:56] LABS: Magnesium 1.9 mg/dL (1.5-2.4)
[2021-10-16 12:05] LABS: Albumin/Globulin Ratio 1.2 (1.60-3.17); Anion Gap 11.9 mmol/L (10.00-18.00); Bilirubin, Conjugated 0.81 mg/dL (0.20-0.40); Bilirubin,Unconjugated 0.79 mg/dL (0.20-1.00); Blood Urea Nitrogen 33.3 mg/dL (9.0-27.0); Carbon Dioxide 22.1 mmol/L (20.0-27.5); Globulin 2.5 g/dL (1.6-3.3); Non-African American GFR(CKD) 63.9 (60.0-200.0); Potassium 3.8 mmol/L (3.5-5.5); Total Bilirubin 1.6 mg/dL (0.30-1.20); Total Protein 5.5 g/dL (6.2-8.2)
[2021-10-16 12:33] LABS: ALT 13 U/L (4-34); AST 27 U/L (14-36); African American GFR (CKD) 89 (>60 ml/min/1.73 sqM); Albumin 2.6 g/dL (3.5-5.0); Alkaline Phosphatase 63 U/L (38-126); Amylase <30 U/L (30-110); Anion Gap 8 mmol/L; Blood Urea Nitrogen 37 mg/dL (7-17); Calcium 7.7 mg/dL (8.4-10.2); Carbon Dioxide 20 mmol/L (22-30); Chloride 101 mmol/L (98-107); Globulin 2.6 g/dL; Glucose 145 mg/dL (74-99); Lipase 10 U/L (23-300); Non-African American GFR(CKD) 77 (>60 ml/min/1.73 sqM); Potassium 3.4 mmol/L (3.5-5.1); Sodium 129 mmol/L (137-145); Total Bilirubin 1.7 mg/dL (0.2-1.3); Total Protein 5.2 g/dL (6.3-8.2)
[2021-10-16 12:34] LABS: Glucose,Whole Blood 159 mg/dL (70-110)
--- NOTE | 2021-10-16 12:45 | P.PN ---
Subjective Progress Note Date: 10/16/21 Principal diagnosis: Endometrial, N/V radiation FULL Consult was performed yesterday on 10/15/21 by [facility] Marni Patient afebrile, awaiting CMP recheck,pancytopenia mildly worsened today. Granix initiated yesterday Objective - Vital Signs Vital signs: Vital Signs Temp 97.7 F 10/16/21 07:21 Pulse 93 10/16/21 07:21 Resp 16 10/16/21 07:21 BP 97/61 10/16/21 07:21 Pulse Ox 96 10/16/21 07:21 FiO2 Intake & Output 10/15/21 10/16/21 10/16/21 18:59 06:59 18:59 Weight 85.729 kg 85.729 kg Other: # Bowel Movements 1 7 - Constitutional General appearance: Present: cooperative, no acute distress - EENT Eyes: Present: EOMI ENT: Present: NA/AT - Respiratory Respiratory: bilateral: diminished - Cardiovascular Rhythm: regularly irregular - Gastrointestinal General gastrointestinal: Present: distended, soft, tenderness - Integumentary Integumentary: Present: pale - Musculoskeletal Musculoskeletal: Present: generalized weakness - Psychiatric Psychiatric: Present: A&O x's 3, appropriate affect - Labs CBC & Chem 7: 10/16/21 05:10 10/16/21 11:39 Labs: Abnormal Lab Results - Last 24 Hours (Table) 10/15/21 10/15/21 10/15/21 Range/Units 14:22 14:22 19:21 WBC 0.4 L* (3.8-10.6) k/uL RBC 2.81 L (3.80-5.40) m/uL Hgb 9.4 L (11.4-16.0) gm/dL Hct 26.2 L (34.0-46.0) % RDW (11.5-14.5) % Plt Count 87 L (150-450) k/uL Plt Count Comment MPV (9.5-12.2) fL Neutrophils # (1.80-7.70) X 10*3/uL Lymphocytes # (0.90-5.00) X 10*3/uL Monocytes # (0.20-1.00) X 10*3/uL Eosinophils # (0.04-0.35) X 10*3/uL Immature Plt Fraction (1.1-6.1) % Sodium 125 L (137-145) mmol/L Potassium 3.0 L (3.5-5.1) mmol/L Chloride 89 L (98-107) mmol/L BUN 34 H (7-17) mg/dL Glucose 264 H (74-99) mg/dL POC Glucose (mg/dL) 289 H (70-110) mg/dL Calcium 8.2 L (8.4-10.2) mg/dL Magnesium 1.3 L (1.6-2.3) mg/dL Total Bilirubin 2.6 H (0.2-1.3) mg/dL Total Protein 6.0 L (6.3-8.2) g/dL Albumin 3.1 L (3.5-5.0) g/dL Stool Occult Blood (Negative) 10/15/21 10/16/21 10/16/21 Range/Units 20:44 05:10 07:21 WBC 0.36 L* (3.8-10.6) k/uL RBC 2.69 L (3.80-5.40) m/uL Hgb 8.3 L (11.4-16.0) gm/dL Hct 25.1 L (34.0-46.0) % RDW 15.5 H (11.5-14.5) % Plt Count 58 L (150-450) k/uL Plt Count Comment DECREASED A MPV 12.6 H (9.5-12.2) fL Neutrophils # 0.05 L* (1.80-7.70) X 10*3/uL Lymphocytes # 0.21 L (0.90-5.00) X 10*3/uL Monocytes # 0.09 L (0.20-1.00) X 10*3/uL Eosinophils # 0.01 L (0.04-0.35) X 10*3/uL Immature Plt Fraction 9.0 H (1.1-6.1) % Sodium (137-145) mmol/L Potassium (3.5-5.1) mmol/L Chloride (98-107) mmol/L BUN (7-17) mg/dL Glucose (74-99) mg/dL POC Glucose (mg/dL) 241 H (70-110) mg/dL Calcium (8.4-10.2) mg/dL Magnesium (1.6-2.3) mg/dL Total Bilirubin (0.2-1.3) mg/dL Total Protein (6.3-8.2) g/dL Albumin (3.5-5.0) g/dL Stool Occult Blood Positive H (Negative) Microbiology - Last 24 Hours (Table) 10/15/21 20:44 Stool Culture - Preliminary Stool Assessment and Plan (1) Antineoplastic chemotherapy induced pancytopenia Narrative/Plan: Continue on Granix Neutropenia precautions Blood cultures pending, high risk for systemic infection recommend continuing broad spectrum abx Monitor platelets: if less than 50K hold AC, NSAIDS and ASA, If less than 10K transfuse Hemoglobin stable no intervention Current Visit: Yes Status: Acute Priority: High Code(s): D61.810 - ANTINEOPLASTIC CHEMOTHERAPY INDUCED PANCYTOPENIA; T45.1X5A - ADVERSE EFFECT OF ANTINEOPLASTIC AND IMMUNOSUP DRUGS, INIT SNOMED Code(s): 883246516561611 (2) Endometrial carcinoma Narrative/Plan: Status Post cycle 3 of carboplatin and Taxol. Hx of radiation therapy, no active radiation, recently was sent to [facility] for recommendations due to rectovaginal fistula Current Visit: Yes Status: Acute Priority: High Code(s): C54.1 - MALIGNANT NEOPLASM OF ENDOMETRIUM SNOMED Code(s): 833606393 (3) Hypokalemia Current Visit: Yes Status: Acute Code(s): E87.6 - HYPOKALEMIA SNOMED Code(s): 13727620 (4) Rectovaginal fistula Current Visit: Yes Status: Acute Code(s): N82.3 - FISTULA OF VAGINA TO LARGE INTESTINE SNOMED Code(s): 45144482 (5) Chronic abdominal pain Current Visit: Yes Status: Acute Code(s): R10.9 - UNSPECIFIED ABDOMINAL PAIN; G89.29 - OTHER CHRONIC PAIN SNOMED Code(s): 453913531 Plan: Dr. Hernandez: I have completed the full history and physical and developed the above impression and plan, agree with dictation, dictated as a scribe
--- NOTE | 2021-10-16 12:53 | P.GSCN ---
History of Present Illness Consult date: 10/16/21 History of present illness: CHIEF COMPLAINT: Diarrhea, fever and chills HISTORY OF PRESENT ILLNESS: This is a 71-year-old female with a known history of metastatic endometrial cancer. Patient received her last chemotherapy about 1- 1/2 weeks ago. Since then she has developed a significant amount of diarrhea and also was having fever and chills. She came into the ER for further evaluation. Patient also had been reporting passing stool with her urine as well as passing stool through the vagina. Patient reports that the symptoms are not new and she's had them for about 6 weeks. She follows up with Dr. James her EDUCATION DEPARTMENT REGISTRAR oncologist. And apparently he had initiated a workup with CAT scans for further evaluation of these findings. Patient reports that her last radiation treatment to the pelvis was over 4 years ago. Her last colonoscopy was greater than 5 years. Patient did have a computed tomography scan abdomen and pelvis that did reveal rectal wall thickening with luminal narrowing and resulted stool burden and mild colonic distention. Findings raise concern for colonic obstruction. Malignancy cannot be excluded. Rectal wall abuts the vagina with cast versus fecal material within the vagina. Findings are concerning for rectovaginal fistula. Patient has been pancytopenic. Oncology is also on consult. Surgical consult placed regarding colovesical fistula. PAST MEDICAL HISTORY: Endometrial cancer, diabetes mellitus, asthma, hyperlipidemia PAST SURGICAL HISTORY: Cholecystectomy, hysterectomy and tubal ligation MEDICATIONS: See list. ALLERGIES: See list. SOCIAL HISTORY: No illicit drug use. Positive smoker REVIEW OF SYSTEMS: CONSTITUTIONAL: Denies fever or chills. HEENT: Denies blurred vision, vision changes, or eye pain. Denies hemoptysis CARDIOVASCULAR: Denies chest pain or pressure. RESPIRATORY: No shortness of breath. GASTROINTESTINAL: See HPI for pertinent findings HEMATOLOGIC: Denies bleeding disorders. GENITOURINARY: Denies any blood in urine or increased urinary frequency. SKIN: Denies pruitis. Denies rash. PHYSICAL EXAM: VITAL SIGNS: Reviewed GENERAL: Well-developed in no acute distress. HEENT: No sclera icterus. Extraocular movements grossly intact. Moist buccal mucosa. Head is atraumatic, normocephalic. No nasal drainage. ABDOMEN: Soft. Nondistended. Tenderness to palpation of the left lower abdomen NEUROLOGIC: Alert and oriented. Cranial nerves II through XII grossly intact. LABORATORY DATA: WBC is 0.36 Hgb 8.3 platelets 58 Sodium is 129 potassium is 3.4 creatinine 0.77 Lactic acid 1.7 Magnesium 1.3 up to 2.0 Total bilirubin 1.7 Stool for occult blood positive C. diff negative Covid not detected influenza not detected IMAGING: Computed tomography scan abdomen and pelvis reveal rectal wall thickening with luminal narrowing and resulted stool burden and mild colonic distention. Findings raise concern for colonic obstruction. Malignancy cannot be excluded. Rectal wall abuts the vagina with cast versus fecal material within the vagina. Findings are concerning for rectovaginal fistula. Bilateral hydronephrosis well obstructing calculi. Considerations include urinary bladder outlet obstruction versus reactive changes secondary to pelvic pathology ASSESSMENT: 1. Rectovaginal fistula 2. Diarrhea chemo-induced 3. History of metastatic endometrial cancer 4. Electrolyte imbalance PLAN: -No surgical intervention planned -Start full liquid diet -Recommend that patient follows up with her EDUCATION DEPARTMENT REGISTRAR oncologist that did initiate workup outpatient on the rectovaginal fistula -Continue supportive care -Continue to correct electrolytes -Oncology following Thank you for this consultation Physician Options Trader note has been reviewed by physician. Signing provider agrees with the documented findings, assessment, and plan of care. I have personally seen and examined the patient, reviewed the DAIRY SCIENTIST /PAs history, exam and MDM and agree with the assessment and plan as written. Based on total visit time, I have performed more than 50% of the visit. As above: Patient presents with complaints of fevers chills, weakness, and diarrhea. Patient with recent chemotherapy for endometrial cancer. States she is being evaluated by Dr. James for possible rectovaginal fistula currently. CAT scan results noted. Patient is having multiple stools overnight. States she has mild lower abdominal pain. Abdominal bloating is present however patient states it is not significantly changed from previous. CAT scan and history certainly suggestive of rectovaginal fistula from prior radiation and known malignancy. No immediate plans for endoscopy or further imaging unless symptoms change. Otherwise recommend patient follow up with her EDUCATION DEPARTMENT REGISTRAR oncologist after discharge to further investigate the possible vaginal fistula. Begin full liquid diet. Will follow. Past Medical History Past Medical History: Asthma, Cancer, Diabetes Mellitus, Hyperlipidemia, Osteoarthritis (OA), Pneumonia Additional Past Medical History / Comment(s): ENDOMETRIAL CANCER. History of Any Multi-Drug Resistant Organisms: None Reported Past Surgical History: Cholecystectomy, Hysterectomy, Tubal Ligation Past Anesthesia/Blood Transfusion Reactions: No Reported Reaction Past Psychological History: No Psychological Hx Reported Smoking Status: Current every day smoker Past Alcohol Use History: None Reported Past Drug Use History: Marijuana Additional Drug Use History / Comment(s): THC GUMMIES. Medications and Allergies Home Medications Medication Instructions Recorded Confirmed Type Albuterol Inhaler [Ventolin Hfa 2 puff INHALATION RT-Q6H PRN 09/03/21 10/15/21 History Inhaler] Atorvastatin [Lipitor] 10 mg PO HS 09/03/21 10/15/21 History Calcium Carbonate [Calcium] 600 mg PO DAILY 09/03/21 10/15/21 History Cholecalciferol (Vitamin D3) 125 mcg PO DAILY 09/03/21 10/15/21 History [Vitamin D3 (125 MCG = 5,000 IU)] HYDROcodone/APAP 5-325MG [[place] 1 tab PO Q4H PRN 09/03/21 10/15/21 History 5-325] Ondansetron [Zofran] 4 mg PO Q4H PRN 09/03/21 10/15/21 History Pioglitazone [Actos] 30 mg PO DAILY 09/03/21 10/15/21 History Tiotropium 18 Mcg/Puff [Spiriva] 1 puff INHALATION RT-DAILY 09/03/21 10/15/21 History Dorzolamide HCl/Pf [Dorzolamide 2% 1 drop BOTH EYES BID 10/15/21 10/15/21 History Eye Drop] Gabapentin [Neurontin] 100 mg PO BID 10/15/21 10/15/21 History Glimepiride [Amaryl] 2 mg PO HS 10/15/21 10/15/21 History Glimepiride [Amaryl] 4 mg PO DAILY 10/15/21 10/15/21 History Multivitamins, Thera [Multivitamin 1 tab PO DAILY 10/15/21 10/15/21 History (formulary)] Olopatadine HCl [Patanol 0.1%] 1 drop BOTH EYES BID 10/15/21 10/15/21 History Quinapril/Hydrochlorothiazide 1 tab PO DAILY 10/15/21 10/15/21 History [Quinapril-Hctz 20-25 mg Tab] Allergies Allergy/AdvReac Type Severity Reaction Status Date / Time metformin Allergy Rash/Hives Verified 09/03/21 09:46 Surgical - Exam Vital Signs Temp Pulse Resp BP Pulse Ox 99.0 F 82 18 114/69 100 10/15/21 13:50 10/15/21 13:50 10/15/21 13:50 10/15/21 13:50 10/15/21 13:50 Results - Labs 10/16/21 05:10 10/16/21 11:39 Abnormal Lab Results - Last 24 Hours (Table) 10/15/21 10/15/21 10/15/21 Range/Units 14:22 14:22 19:21 WBC 0.4 L* (3.8-10.6) k/uL RBC 2.81 L (3.80-5.40) m/uL Hgb 9.4 L (11.4-16.0) gm/dL Hct 26.2 L (34.0-46.0) % Plt Count 87 L (150-450) k/uL Sodium 125 L (137-145) mmol/L Potassium 3.0 L (3.5-5.1) mmol/L Chloride 89 L (98-107) mmol/L BUN 34 H (7-17) mg/dL Glucose 264 H (74-99) mg/dL POC Glucose (mg/dL) 289 H (70-110) mg/dL Calcium 8.2 L (8.4-10.2) mg/dL Magnesium 1.3 L (1.6-2.3) mg/dL Total Bilirubin 2.6 H (0.2-1.3) mg/dL Total Protein 6.0 L (6.3-8.2) g/dL Albumin 3.1 L (3.5-5.0) g/dL Stool Occult Blood (Negative) 10/15/21 10/16/21 Range/Units 20:44 07:21 WBC (3.8-10.6) k/uL RBC (3.80-5.40) m/uL Hgb (11.4-16.0) gm/dL Hct (34.0-46.0) % Plt Count (150-450) k/uL Sodium (137-145) mmol/L Potassium (3.5-5.1) mmol/L Chloride (98-107) mmol/L BUN (7-17) mg/dL Glucose (74-99) mg/dL POC Glucose (mg/dL) 241 H (70-110) mg/dL Calcium (8.4-10.2) mg/dL Magnesium (1.6-2.3) mg/dL Total Bilirubin (0.2-1.3) mg/dL Total Protein (6.3-8.2) g/dL Albumin (3.5-5.0) g/dL Stool Occult Blood Positive H (Negative) Microbiology - Last 24 Hours (Table) 10/15/21 20:44 Stool Culture - Preliminary Stool Diabetes panel 10/15/21 Range/Units 14:22 Sodium 125 L (137-145) mmol/L Potassium 3.0 L (3.5-5.1) mmol/L Chloride 89 L (98-107) mmol/L Carbon Dioxide 25 (22-30) mmol/L BUN 34 H (7-17) mg/dL Creatinine 0.80 (0.52-1.04) mg/dL Glucose 264 H (74-99) mg/dL Calcium 8.2 L (8.4-10.2) mg/dL AST 19 (14-36) U/L ALT 13 (4-34) U/L Alkaline Phosphatase 83 (38-126) U/L Total Protein 6.0 L (6.3-8.2) g/dL Albumin 3.1 L (3.5-5.0) g/dL Calcium panel 10/15/21 Range/Units 14:22 Calcium 8.2 L (8.4-10.2) mg/dL Albumin 3.1 L (3.5-5.0) g/dL Pituitary panel 10/15/21 Range/Units 14:22 Sodium 125 L (137-145) mmol/L Potassium 3.0 L (3.5-5.1) mmol/L Chloride 89 L (98-107) mmol/L Carbon Dioxide 25 (22-30) mmol/L BUN 34 H (7-17) mg/dL Creatinine 0.80 (0.52-1.04) mg/dL Glucose 264 H (74-99) mg/dL Calcium 8.2 L (8.4-10.2) mg/dL Adrenal panel 10/15/21 Range/Units 14:22 Sodium 125 L (137-145) mmol/L Potassium 3.0 L (3.5-5.1) mmol/L Chloride 89 L (98-107) mmol/L Carbon Dioxide 25 (22-30) mmol/L BUN 34 H (7-17) mg/dL Creatinine 0.80 (0.52-1.04) mg/dL Glucose 264 H (74-99) mg/dL Calcium 8.2 L (8.4-10.2) mg/dL Total Bilirubin 2.6 H (0.2-1.3) mg/dL AST 19 (14-36) U/L ALT 13 (4-34) U/L Alkaline Phosphatase 83 (38-126) U/L Total Protein 6.0 L (6.3-8.2) g/dL Albumin 3.1 L (3.5-5.0) g/dL
--- NOTE | 2021-10-16 13:54 | P.CN ---
Psychiatric Consult - . Consult date: 10/16/21 Consult:: 10/16/21 13:54 IDENTIFYING DATA: This patient is a 71-year-old , retired, female significant history of metastatic endometrial cancer on chemotherapy who presented to the hospital with a chief complaint of diarrhea, fevers, and chills. HISTORY OF PRESENT ILLNESS: The patient presented to the hospital on 10/15/2021, brought into the hospital with a chief complaint of diarrhea, fever, and chills. The patient had chemotherapy approximately a week and a half prior to her presentation in the emergency department. There is also concern that the patient has been having stool in her urine, into her vagina which has been present for approximately 4 weeks. Psychiatry has been consulted for evaluation of suicidal ideation. On evaluation on the medical floor, the patient is currently not endorsing any significant symptoms of psychiatric pathology at this time. She is currently vehemently denying any suicidal or homicidal ideation, intention, and/or plan. She is not reporting any auditory or visual hallucinations. She denies any paranoia or other delusions. In regards to depressive symptoms, the patient does endorse low energy and difficulty sleeping however she denies any anhedonia, lack of appetite, or any feelings of hopelessness and helplessness. The patient reports that she has been contemplating how her children are doing due to her ailing health. She denies any prior attempts at suicide and vehemently states that she would not hurt herself. She describes the passing suicidal thought as a moment of weakness when thinking about her children. The patient reports no significant psychiatric history. She states that she is prescribed Zyprexa to help her sleep at night. PAST PSYCHIATRIC HISTORY: Patient has no significant psychiatric history. Her home medication regimen includes gabapentin and Zyprexa. Patient denies any previous psychiatric hospitalizations. Patient denies any psychiatric outpatient follow-up. Patient denies any history of suicide attempts in the past. PAST MEDICAL HISTORY: Past Medical History: Asthma, Cancer, Diabetes Mellitus, Hyperlipidemia, Osteoarthritis (OA), Pneumonia Additional Past Medical History / Comment(s): ENDOMETRIAL CANCER. History of Any Multi-Drug Resistant Organisms: None Reported Past Surgical History: Cholecystectomy, Hysterectomy, Tubal Ligation Past Anesthesia/Blood Transfusion Reactions: No Reported Reaction Past Psychological History: No Psychological Hx Reported Smoking Status: Current every day smoker Past Alcohol Use History: None Reported Past Drug Use History: Marijuana ALLERGIES: Metformin CHEMICAL DEPENDENCY HISTORY: Patient has reported history of marijuana use. She also has history of tobacco use. She denies any significant alcohol or illicit drug use. FAMILY PSYCHIATRIC/SUBSTANCE USE HISTORY: No reported family psychiatric history. SOCIAL HISTORY: Patient is , retired. She does report significant support from her children. MENTAL STATUS EXAM: General Appearance: Patient appears to be stated age is alert, pleasant, and cooperative. Patient appears to have fair hygiene and grooming wearing hospital gown with fair eye contact. Behavior: Patient is calmly lying in bed without any agitated behavior. She does express Javier begins to drink her grape juice that is present. Speech: Patient's speech is fluent and nonpressured. Mood/Affect: Patient reports their mood is "doing okay", affect is congruent and constricted Suicidality/Homicidality: Patient denies having any suicidal or homicidal ideation intent or plan. Perceptions: Patient denies any visual hallucinations and denies any auditory hallucinations Though content/process: There is no evidence of any delusional thought content and thought process is linear and goal-directed. Memory and concentration: AOX3, grossly intact for the purposes of this session. Can spell "WORLD" backwards Judgment and insight: Fair Vital Signs Temp 99.2 F 10/16/21 13:00 Pulse 85 10/16/21 13:00 Resp 18 10/16/21 13:00 BP 99/61 10/16/21 13:00 Pulse Ox 100 10/16/21 13:00 FiO2 Intake & Output 10/15/21 10/16/21 10/16/21 18:59 06:59 18:59 Weight 85.729 kg 85.729 kg Other: # Bowel Movements 1 7 Laboratory Results WBC 0.36 X 10*3/uL (4.50-10.00) L* 10/16/21 05:10 RBC 2.69 X 10*6/uL (4.10-5.20) L 10/16/21 05:10 Hgb 8.3 g/dL (12.0-15.0) L 10/16/21 05:10 Hct 25.1 % (37.2-46.3) L 10/16/21 05:10 MCV 93.3 fL (80.0-97.0) 10/16/21 05:10 MCH 30.9 pg (27.0-32.0) 10/16/21 05:10 MCHC 33.1 g/dL (32.0-37.0) 10/16/21 05:10 RDW 15.5 % (11.5-14.5) H 10/16/21 05:10 Plt Count 58 X 10*3/uL (140-440) L 10/16/21 05:10 Plt Count Comment DECREASED A 10/16/21 05:10 MPV 12.6 fL (9.5-12.2) H 10/16/21 05:10 Immature Gran % (Auto) 0 % 10/16/21 05:10 Absolute Nucleated RBC 0 X 10*3/uL (0.00-0.00) 10/16/21 05:10 Neutrophils % 13.9 % 10/16/21 05:10 Lymphocytes % 58.3 % 10/16/21 05:10 Monocytes % 25.0 % 10/16/21 05:10 Eosinophils % 2.8 % 10/16/21 05:10 Basophils % 0 % 10/16/21 05:10 Immature Gran # 0 X 10*3/uL (0.00-0.04) 10/16/21 05:10 Neutrophils # 0.05 X 10*3/uL (1.80-7.70) L* 10/16/21 05:10 Neutrophils # (Manual) k/uL (1.3-7.7) 10/15/21 14:22 Lymphocytes # 0.21 X 10*3/uL (0.90-5.00) L 10/16/21 05:10 Monocytes # 0.09 X 10*3/uL (0.20-1.00) L 10/16/21 05:10 Eosinophils # 0.01 X 10*3/uL (0.04-0.35) L 10/16/21 05:10 Basophils # 0 X 10*3/uL (0.00-0.10) 10/16/21 05:10 NRBC/100 WBC Diff 0 /100 WBCS (0.0-0.0) 10/16/21 05:10 Immature Plt Fraction 9.0 % (1.1-6.1) H 10/16/21 05:10 RBC Morphology NORMAL 10/16/21 05:10 PT 10.8 sec (9.0-12.0) 10/15/21 14:22 INR 1.0 (<1.2) 10/15/21 14:22 APTT 24.4 sec (22.0-30.0) 10/15/21 14:22 Sodium 129 mmol/L (137-145) L 10/16/21 11:39 Potassium 3.4 mmol/L (3.5-5.1) L 10/16/21 11:39 Chloride 101 mmol/L (98-107) 10/16/21 11:39 Carbon Dioxide 20 mmol/L (22-30) L 10/16/21 11:39 Anion Gap 8 mmol/L 10/16/21 11:39 BUN 37 mg/dL (7-17) H 10/16/21 11:39 Creatinine 0.77 mg/dL (0.52-1.04) 10/16/21 11:39 Est GFR (CKD-EPI)AfAm 89 (>60 ml/min/1.73 sqM) 10/16/21 11:39 Est GFR (CKD-EPI)NonAf 77 (>60 ml/min/1.73 sqM) 10/16/21 11:39 BUN/Creatinine Ratio 37.00 Ratio (12.00-20.00) H 10/16/21 05:10 Glucose 145 mg/dL (74-99) H 10/16/21 11:39 POC Glucose (mg/dL) 159 mg/dL (70-110) H 10/16/21 12:28 POC Glu Robot Programmer ID Pascale Goldberg 10/16/21 12:28 Plasma Lactic Acid Faheem 1.7 mmol/L (0.7-2.0) 10/16/21 11:39 Calcium 7.7 mg/dL (8.4-10.2) L 10/16/21 11:39 Magnesium 2.0 mg/dL (1.6-2.3) 10/16/21 11:39 Total Bilirubin 1.7 mg/dL (0.2-1.3) H 10/16/21 11:39 Conjugated Bilirubin 0.81 mg/dL (0.20-0.40) H 10/16/21 05:10 Unconjugated Bilirubin 0.79 mg/dL (0.20-1.00) 10/16/21 05:10 AST 27 U/L (14-36) 10/16/21 11:39 ALT 13 U/L (4-34) 10/16/21 11:39 Alkaline Phosphatase 63 U/L (38-126) 10/16/21 11:39 Total Protein 5.2 g/dL (6.3-8.2) L 10/16/21 11:39 Albumin 2.6 g/dL (3.5-5.0) L 10/16/21 11:39 Globulin 2.6 g/dL 10/16/21 11:39 Albumin/Globulin Ratio 1.0 10/16/21 11:39 Amylase <30 U/L (30-110) L 10/16/21 11:39 Lipase 10 U/L (23-300) L 10/16/21 11:39 Stool Occult Blood Positive (Negative) H 10/15/21 20:44 C. difficile (EIA) Intrp Negative (Negative) 10/15/21 20:44 Coronavirus (PCR) Not Detected (Not Detectd) 10/15/21 14:22 Influenza Type A RNA Not Detected (Not Detectd) 10/15/21 14:22 Influenza Type B (PCR) Not Detected (Not Detectd) 10/15/21 14:22 Allergies Allergy/AdvReac Type Severity Reaction Status Date / Time metformin Allergy Rash/Hives Verified 09/03/21 09:46 IMPRESSIONS: Adjustment disorder Metastatic Endometrial carcinoma Pancytopenia Diarrhea Hyponatremia, hypokalemia, hypomagnesemia PLAN: -Continue your medical management. -At this time, the patient does not meet criteria for inpatient psychiatric hospitalization. The patient is not presenting with any acute psychiatric pathology and is not presenting with imminent risk of harm to self or others. -This provider spent approximately 20 minutes providing supportive psychotherapy and reflective listening with the patient. -Would recommend the following medication changes/additions: We will discontinue Zyprexa as the patient is pancytopenic and Zyprexa may contribute to a granulocytosis. We will start melatonin 10 mg by mouth at bedtime for insomnia in its stead. -Discontinue one-to-one sitter -Psychiatry will sign off at this point, please contact with any questions. 10/16/21 13:54
--- NOTE | 2021-10-16 14:10 | P.CONS ---
History of Present Illness - Reason for Consult Consult date: 10/15/21 Endometrial carcinoma, treatment last week Requesting physician: Willy Valera - Chief Complaint N, V, D - History of Present Illness Ms. Portillo is a pleasant 71-year-old female patient of Dr. Bowman with a history of endometrial cancer. She is status post 3 cycles of carbo/taxol. She just had a treatment 10/09. Over the last several days she has been feeling poorly, persistently then began experiencing nausea, vomiting and then ultimately diarrhea, no remedies have been helping. She denies fevers, chills, her mouth is dry, no cough, chest pain, shortness of breath, she does have generalized abdominal discomfort worse in the lower quadrants, some trace edema in the lower extremities. Malignancy Hx: Pt developed pain in the right lower back/right lower abdomen, in early 2016. As part of her workup she had Pap smear in 05/28 which which reported high-grade squamous intraepithelial lesion. She then had endocervical curettage on 06/09/16 which showed some atypia but no obvious malignancy. CT AP 08/16/16 which revealed some degenerative changes within the spine. In addition some mild fatty infiltration of the liver was seen. The patient, due to persis tence of symptoms saw a chiropractor. Around this time she was reporting some spotty vaginal bleeding. She was sent back to [facility] , repeat endocervix/endometrial biopsy on 11/11/16 which now revealed high-grade endometrial carcinoma with clear cell features (FIGO 3). Referred to [facility] Oncology, Dr. Ramos, at [facility]. CT CAP was negative other than a nonspecific nodule, 5 mm, the left lower lobe. She had radical surgery on 12/21/16 consisting of SELVIN/BSO, as well as bilateral pelvic and para-aortic node resection. This confirmed a grade 3 tumor, invading to a depth of 0.9 cm, over total thickness of 1.5 cm of the myometrium. Pelvic cytology, as well as lymph nodes and omentum were negative for any involvement. She was referred for adjuvant therapy. She started chemo with Carbo/Taxol 02/01/17. Dose was reduced by 10% for cycle 2 , and an additional 15% for cycle 3 due to GI side e ffects. She is s/p 6 cycles, completing those on 05/17/17. She then started RT, completing that in 06/29. CT late 08/31 showed a new lesion adjacent to the vaginal cuff. She had a PET scan ordered, which was delayed because of insurance issues and the patient's schedule. This was performed on 11/13/19. This confirmed a 2.2 x 3.3 cm left pelvic mass, appearing to involve the and true lateral rectum and the vagina cuff that was metabolic. A left iliac node was smaller than before and not positive. Previously noted lung nodules were also negative. She had colonoscopy that was negative for any finding within the colon or rectum. Therefore, this was felt to be localized recurrence of her endometrial cancer. She was also seen by radiation oncology and it was felt that she could receive additional radiation to this site. Started radiation and completed it on 01/21/20. Case was discussed with Dr. James, and addition of any radiosensitizing chemotherapy was not advised, based on lack of evidence as to benefit. Pt did not follow-up in the office after 08/01. She did however continue follow-up with Radiation Oncology. She states that she developed some discomfort in the perirectal/sacral area around late 2020. This continued to progress and become more persistent. She also started having some foul-smelling discharge per rectum around 05/05. She had a CT AP ordered by radiation oncology in 06/03/21. This showed an abnormal lesion of low attenuation along the left side of the lower pelvis anterior to the sacrum, measuring 3.6 cm. The patient then had a biopsy of this mass on 06/23/21 showing the current endometrial adenocarcinoma. Referred back to Dr. James to evaluate for surgical salvage. She was not felt to be a candidate for additional radiation given her prior radiation field and location of recurrence. PET scan from 08/11/21 showed uptake at this site, as well as questionably in the left inguinal node. She was apparently recommended salvage chemotherapy which she wanted to have closer to home. She was therefore seen back in the office on 08/19/21. Review of Systems 10 point review of systems is negative except as stated in HPI Past Medical History Past Medical History: Asthma, Cancer, Diabetes Mellitus, Hyperlipidemia, Osteoarthritis (OA), Pneumonia Additional Past Medical History / Comment(s): ENDOMETRIAL CANCER. History of Any Multi-Drug Resistant Organisms: None Reported Past Surgical History: Cholecystectomy, Hysterectomy, Tubal Ligation Past Anesthesia/Blood Transfusion Reactions: No Reported Reaction Past Psychological History: No Psychological Hx Reported Smoking Status: Current every day smoker Past Alcohol Use History: None Reported Past Drug Use History: Marijuana Medications and Allergies Home Medications Medication Instructions Recorded Confirmed Type Albuterol Inhaler [Ventolin Hfa 2 puff INHALATION RT-Q6H PRN 09/03/21 10/15/21 History Inhaler] Atorvastatin [Lipitor] 10 mg PO HS 09/03/21 10/15/21 History Calcium Carbonate [Calcium] 600 mg PO DAILY 09/03/21 10/15/21 History Cholecalciferol (Vitamin D3) 125 mcg PO DAILY 09/03/21 10/15/21 History [Vitamin D3 (125 MCG = 5,000 IU)] HYDROcodone/APAP 5-325MG [[place] 1 tab PO Q4H PRN 09/03/21 10/15/21 History 5-325] Ondansetron [Zofran] 4 mg PO Q4H PRN 09/03/21 10/15/21 History Pioglitazone [Actos] 30 mg PO DAILY 09/03/21 10/15/21 History Tiotropium 18 Mcg/Puff [Spiriva] 1 puff INHALATION RT-DAILY 09/03/21 10/15/21 History Dorzolamide HCl/Pf [Dorzolamide 2% 1 drop BOTH EYES BID 10/15/21 10/15/21 History Eye Drop] Gabapentin [Neurontin] 100 mg PO BID 10/15/21 10/15/21 History Glimepiride [Amaryl] 2 mg PO HS 10/15/21 10/15/21 History Glimepiride [Amaryl] 4 mg PO DAILY 10/15/21 10/15/21 History Multivitamins, Thera [Multivitamin 1 tab PO DAILY 10/15/21 10/15/21 History (formulary)] Olopatadine HCl [Patanol 0.1%] 1 drop BOTH EYES BID 10/15/21 10/15/21 History Quinapril/Hydrochlorothiazide 1 tab PO DAILY 10/15/21 10/15/21 History [Quinapril-Hctz 20-25 mg Tab] Allergies Allergy/AdvReac Type Severity Reaction Status Date / Time metformin Allergy Rash/Hives Verified 09/03/21 09:46 Physical Exam Vitals: Vital Signs Temp Pulse Resp BP Pulse Ox 10/15/21 13:50 99.0 F 82 18 114/69 100 Intake and Output 10/15/21 10/15/21 10/15/21 06:59 14:59 22:59 Other: Weight 85.729 kg - Constitutional General appearance: cooperative, no acute distress, obese - EENT Dry mucous membranes, no thrush or ulcerations Eyes: anicteric sclerae, EOMI ENT: hearing grossly normal - Neck Neck: no lymphadenopathy - Respiratory Respiratory: bilateral: rhonchi (Anterior, left greater than right) - Cardiovascular Rhythm: regular Heart sounds: normal: S1, S2 Abnormal Heart Sounds: no systolic murmur, no diastolic murmur, no rub, no S3 Gallop, no S4 Gallop, no click, no other foot Peripheral Edema: bilateral: Trace - Gastrointestinal General gastrointestinal: no absent bowel sounds, no decreased bowel sounds, distended, no hepatomegaly, no hyperactive bowel sounds, no normal bowel sounds, no organomegaly, no rigid, no scaphoid, soft, no splenomegaly, tenderness, no umbilical hernia, no ventral hernia - Integumentary Integumentary: pale - Neurologic Neurologic: CNII-XII intact - Musculoskeletal Musculoskeletal: generalized weakness, strength equal bilaterally - Psychiatric Psychiatric: A&O x's 3, appropriate affect, intact judgment & insight Results CBC & Chem 7: 10/16/21 05:10 10/16/21 11:39 Labs: Abnormal Lab Results - Last 24 Hours (Table) 10/15/21 10/15/21 Range/Units 14:22 14:22 WBC 0.4 L* (3.8-10.6) k/uL RBC 2.81 L (3.80-5.40) m/uL Hgb 9.4 L (11.4-16.0) gm/dL Hct 26.2 L (34.0-46.0) % Plt Count 87 L (150-450) k/uL Sodium 125 L (137-145) mmol/L Potassium 3.0 L (3.5-5.1) mmol/L Chloride 89 L (98-107) mmol/L BUN 34 H (7-17) mg/dL Glucose 264 H (74-99) mg/dL Calcium 8.2 L (8.4-10.2) mg/dL Magnesium 1.3 L (1.6-2.3) mg/dL Total Bilirubin 2.6 H (0.2-1.3) mg/dL Total Protein 6.0 L (6.3-8.2) g/dL Albumin 3.1 L (3.5-5.0) g/dL Chest x-ray: report reviewed Assessment and Plan (1) Antineoplastic chemotherapy induced pancytopenia Current Visit: Yes Status: Acute Priority: High Code(s): D61.810 - ANTINEOPLASTIC CHEMOTHERAPY INDUCED PANCYTOPENIA; T45.1X5A - ADVERSE EFFECT OF ANTINEOPLASTIC AND IMMUNOSUP DRUGS, INIT SNOMED Code(s): 160506328492556 (2) Endometrial carcinoma Current Visit: Yes Status: Acute Priority: High Code(s): C54.1 - MALIGNANT NEOPLASM OF ENDOMETRIUM SNOMED Code(s): 154147322 (3) Nausea vomiting and diarrhea Current Visit: Yes Status: Acute Priority: High Code(s): R11.2 - NAUSEA WITH VOMITING, UNSPECIFIED; R19.7 - DIARRHEA, UNSPECIFIED SNOMED Code(s): 4983390 (4) Dehydration with hyponatremia Current Visit: Yes Status: Acute Priority: High Code(s): E86.0 - DEHYDRATION; E87.1 - HYPO-OSMOLALITY AND HYPONATREMIA SNOMED Code(s): 92170035 (5) Electrolyte abnormality Current Visit: Yes Status: Acute Priority: High Code(s): E87.8 - OTH DISORDERS OF ELECTROLYTE AND FLUID BALANCE, NEC SNOMED Code(s): 630516961 Plan: Case was discussed with the ER physician. Patient's WBC is 0.4, no differential. Confirmed no G-CSF after chemo was given. G-CSF ordered to be given daily. Mild anemia, moderate thrombocytopenia, neither one requiring transfusion at this time. Continue to monitor CBC while inpatient daily. We'll need differential so that G-CSF can be discontinued when adequate ANC. Endometrial cancer. Status post 3 cycles of carboplatin and Taxol. Patient states that she doesn't think that she can do any more chemotherapy. At this time plan is to treat patient's symptoms and she'll follow-up in the outpatient setting. If patient does not want to pursue any further treatment that is ok. It is recommended that patient continue to follow with her Medical Oncologist for proper follow-up and examinations so that if there is recurrence it will be found sooner than later. Nausea, vomiting and diarrhea secondary to chemotherapy. Electrolytes deranged because of fluid loss. Patient is being hydrated. Electrolytes are being replaced. Supportive medications for symptoms are ordered. On exam patient is a tender abdomen. Concerns for neutropenic typhlitis. Nothing by mouth. CT is already ordered.
--- NOTE | 2021-10-16 15:39 | P.GSCN ---
History of Present Illness Consult date: 10/16/21 History of present illness: 71 yo femal e with endometrial ca with metastatic disease as well as local recurrence despite radiation. She has been evaluated by [facility] at [facility] and was not felt to be a salvage surgical candidate. SHe apparently has started salvage chemotherapy. SHe had a ct scan identifying bilateral mild hydro with a full bladder. BY history the patient also may have a rectovaginal fistula. Patient has no urologic history other than frequent urination as expected from radiation. She denies hematuria urine infections. She denies flank pain. There is no history kidney stones. She states that she is not getting any more treatment. Review of Systems All systems: negative - Constitutional Denies fever, Denies weight loss - EENT Eyes: denies blurred vision Ears, nose, mouth and throat: Denies dysphagia - Cardiovascular Denies chest pain, Denies shortness of breath - Respiratory Denies cough, Denies 7 - Gastrointestinal Reports as per HPI - Genitourinary Genitourinary: Denies dysuria, Denies hematuria - Integumentary Denies rash, Denies unusual bruising - Neurological Denies headaches, Denies syncope - Hematologic/Lymphatic Denies easy bleeding, Denies easy bruising Past Medical History Past Medical History: Asthma, Cancer, Diabetes Mellitus, Hyperlipidemia, Osteoarthritis (OA), Pneumonia Additional Past Medical History / Comment(s): ENDOMETRIAL CANCER. History of Any Multi-Drug Resistant Organisms: None Reported Past Surgical History: Cholecystectomy, Hysterectomy, Tubal Ligation Past Anesthesia/Blood Transfusion Reactions: No Reported Reaction Past Psychological History: No Psychological Hx Reported Smoking Status: Current every day smoker Past Alcohol Use History: None Reported Past Drug Use History: Marijuana Medications and Allergies Home Medications Medication Instructions Recorded Confirmed Type Albuterol Inhaler [Ventolin Hfa 2 puff INHALATION RT-Q6H PRN 09/03/21 10/15/21 History Inhaler] Atorvastatin [Lipitor] 10 mg PO HS 09/03/21 10/15/21 History Calcium Carbonate [Calcium] 600 mg PO DAILY 09/03/21 10/15/21 History Cholecalciferol (Vitamin D3) 125 mcg PO DAILY 09/03/21 10/15/21 History [Vitamin D3 (125 MCG = 5,000 IU)] HYDROcodone/APAP 5-325MG [[place] 1 tab PO Q4H PRN 09/03/21 10/15/21 History 5-325] Ondansetron [Zofran] 4 mg PO Q4H PRN 09/03/21 10/15/21 History Pioglitazone [Actos] 30 mg PO DAILY 09/03/21 10/15/21 History Tiotropium 18 Mcg/Puff [Spiriva] 1 puff INHALATION RT-DAILY 09/03/21 10/15/21 History Dorzolamide HCl/Pf [Dorzolamide 2% 1 drop BOTH EYES BID 10/15/21 10/15/21 History Eye Drop] Gabapentin [Neurontin] 100 mg PO BID 10/15/21 10/15/21 History Glimepiride [Amaryl] 2 mg PO HS 10/15/21 10/15/21 History Glimepiride [Amaryl] 4 mg PO DAILY 10/15/21 10/15/21 History Multivitamins, Thera [Multivitamin 1 tab PO DAILY 10/15/21 10/15/21 History (formulary)] Olopatadine HCl [Patanol 0.1%] 1 drop BOTH EYES BID 10/15/21 10/15/21 History Quinapril/Hydrochlorothiazide 1 tab PO DAILY 10/15/21 10/15/21 History [Quinapril-Hctz 20-25 mg Tab] Allergies Allergy/AdvReac Type Severity Reaction Status Date / Time metformin Allergy Rash/Hives Verified 09/03/21 09:46 Surgical - Exam Vital Signs Temp Pulse Resp BP Pulse Ox 99.0 F 82 18 114/69 100 10/15/21 13:50 10/15/21 13:50 10/15/21 13:50 10/15/21 13:50 10/15/21 13:50 - General well developed, chronically ill - Eyes PERRL - ENT no hearing loss - Respiratory normal expansion, normal respiratory effort - Cardiovascular Rhythm: regular - Abdomen Abdomen: soft, non tender - Musculoskeletal normal posture - Psychiatric oriented to time, oriented to person, oriented to place, speech is normal, memory intact Results - Labs 10/16/21 05:10 10/16/21 11:39 Abnormal Lab Results - Last 24 Hours (Table) 10/15/21 10/15/21 10/15/21 Range/Units 14:22 14:22 19:21 WBC 0.4 L* (3.8-10.6) k/uL RBC 2.81 L (3.80-5.40) m/uL Hgb 9.4 L (11.4-16.0) gm/dL Hct 26.2 L (34.0-46.0) % RDW (11.5-14.5) % Plt Count 87 L (150-450) k/uL Plt Count Comment MPV (9.5-12.2) fL Neutrophils # (1.80-7.70) X 10*3/uL Lymphocytes # (0.90-5.00) X 10*3/uL Monocytes # (0.20-1.00) X 10*3/uL Eosinophils # (0.04-0.35) X 10*3/uL Immature Plt Fraction (1.1-6.1) % Sodium 125 L (137-145) mmol/L Potassium 3.0 L (3.5-5.1) mmol/L Chloride 89 L (98-107) mmol/L Carbon Dioxide (22-30) mmol/L BUN 34 H (7-17) mg/dL BUN/Creatinine Ratio (12.00-20.00) Ratio Glucose 264 H (74-99) mg/dL POC Glucose (mg/dL) 289 H (70-110) mg/dL Calcium 8.2 L (8.4-10.2) mg/dL Magnesium 1.3 L (1.6-2.3) mg/dL Total Bilirubin 2.6 H (0.2-1.3) mg/dL Conjugated Bilirubin (0.20-0.40) mg/dL Total Protein 6.0 L (6.3-8.2) g/dL Albumin 3.1 L (3.5-5.0) g/dL Albumin/Globulin Ratio (1.60-3.17) g/dL Amylase (30-110) U/L Lipase (23-300) U/L Stool Occult Blood (Negative) 10/15/21 10/16/21 10/16/21 Range/Units 20:44 05:10 05:10 WBC 0.36 L* (3.8-10.6) k/uL RBC 2.69 L (3.80-5.40) m/uL Hgb 8.3 L (11.4-16.0) gm/dL Hct 25.1 L (34.0-46.0) % RDW 15.5 H (11.5-14.5) % Plt Count 58 L (150-450) k/uL Plt Count Comment DECREASED A MPV 12.6 H (9.5-12.2) fL Neutrophils # 0.05 L* (1.80-7.70) X 10*3/uL Lymphocytes # 0.21 L (0.90-5.00) X 10*3/uL Monocytes # 0.09 L (0.20-1.00) X 10*3/uL Eosinophils # 0.01 L (0.04-0.35) X 10*3/uL Immature Plt Fraction 9.0 H (1.1-6.1) % Sodium 129 L (137-145) mmol/L Potassium (3.5-5.1) mmol/L Chloride 95 L (98-107) mmol/L Carbon Dioxide (22-30) mmol/L BUN 33.3 H (7-17) mg/dL BUN/Creatinine Ratio 37.00 H (12.00-20.00) Ratio Glucose 245 H (74-99) mg/dL POC Glucose (mg/dL) (70-110) mg/dL Calcium 8.0 L (8.4-10.2) mg/dL Magnesium (1.6-2.3) mg/dL Total Bilirubin 1.60 H (0.2-1.3) mg/dL Conjugated Bilirubin 0.81 H (0.20-0.40) mg/dL Total Protein 5.5 L (6.3-8.2) g/dL Albumin 3.0 L (3.5-5.0) g/dL Albumin/Globulin Ratio 1.20 L (1.60-3.17) g/dL Amylase (30-110) U/L Lipase (23-300) U/L Stool Occult Blood Positive H (Negative) 10/16/21 10/16/21 10/16/21 Range/Units 07:21 11:39 12:28 WBC (3.8-10.6) k/uL RBC (3.80-5.40) m/uL Hgb (11.4-16.0) gm/dL Hct (34.0-46.0) % RDW (11.5-14.5) % Plt Count (150-450) k/uL Plt Count Comment MPV (9.5-12.2) fL Neutrophils # (1.80-7.70) X 10*3/uL Lymphocytes # (0.90-5.00) X 10*3/uL Monocytes # (0.20-1.00) X 10*3/uL Eosinophils # (0.04-0.35) X 10*3/uL Immature Plt Fraction (1.1-6.1) % Sodium 129 L (137-145) mmol/L Potassium 3.4 L (3.5-5.1) mmol/L Chloride (98-107) mmol/L Carbon Dioxide 20 L (22-30) mmol/L BUN 37 H (7-17) mg/dL BUN/Creatinine Ratio (12.00-20.00) Ratio Glucose 145 H (74-99) mg/dL POC Glucose (mg/dL) 241 H 159 H (70-110) mg/dL Calcium 7.7 L (8.4-10.2) mg/dL Magnesium (1.6-2.3) mg/dL Total Bilirubin 1.7 H (0.2-1.3) mg/dL Conjugated Bilirubin (0.20-0.40) mg/dL Total Protein 5.2 L (6.3-8.2) g/dL Albumin 2.6 L (3.5-5.0) g/dL Albumin/Globulin Ratio (1.60-3.17) g/dL Amylase <30 L (30-110) U/L Lipase 10 L (23-300) U/L Stool Occult Blood (Negative) Microbiology - Last 24 Hours (Table) 10/15/21 20:44 Stool Culture - Preliminary Stool Diabetes panel 10/15/21 10/16/21 10/16/21 Range/Units 14:22 05:10 11:39 Sodium 125 L 129 L 129 L (137-145) mmol/L Potassium 3.0 L 3.8 3.4 L (3.5-5.1) mmol/L Chloride 89 L 95 L 101 (98-107) mmol/L Carbon Dioxide 25 22.1 20 L (22-30) mmol/L BUN 34 H 33.3 H 37 H (7-17) mg/dL Creatinine 0.80 0.9 0.77 (0.52-1.04) mg/dL Glucose 264 H 245 H 145 H (74-99) mg/dL Calcium 8.2 L 8.0 L 7.7 L (8.4-10.2) mg/dL AST 19 22 27 (14-36) U/L ALT 13 13 13 (4-34) U/L Alkaline Phosphatase 83 63 63 (38-126) U/L Total Protein 6.0 L 5.5 L 5.2 L (6.3-8.2) g/dL Albumin 3.1 L 3.0 L 2.6 L (3.5-5.0) g/dL Calcium panel 10/15/21 10/16/21 10/16/21 Range/Units 14: 05:10 11:39 Calcium 8.2 L 8.0 L 7.7 L (8.4-10.2) mg/dL Albumin 3.1 L 3.0 L 2.6 L (3.5-5.0) g/dL Pituitary panel 10/15/21 10/16/21 10/16/21 Range/Units 14: 05:10 11:39 Sodium 125 L 129 L 129 L (137-145) mmol/L Potassium 3.0 L 3.8 3.4 L (3.5-5.1) mmol/L Chloride 89 L 95 L 101 (98-107) mmol/L Carbon Dioxide 25 22.1 20 L (22-30) mmol/L BUN 34 H 33.3 H 37 H (7-17) mg/dL Creatinine 0.80 0.9 0.77 (0.52-1.04) mg/dL Glucose 264 H 245 H 145 H (74-99) mg/dL Calcium 8.2 L 8.0 L 7.7 L (8.4-10.2) mg/dL Adrenal panel 10/15/21 10/16/21 10/16/21 Range/Units 14: 05:10 11:39 Sodium 125 L 129 L 129 L (137-145) mmol/L Potassium 3.0 L 3.8 3.4 L (3.5-5.1) mmol/L Chloride 89 L 95 L 101 (98-107) mmol/L Carbon Dioxide 25 22.1 20 L (22-30) mmol/L BUN 34 H 33.3 H 37 H (7-17) mg/dL Creatinine 0.80 0.9 0.77 (0.52-1.04) mg/dL Glucose 264 H 245 H 145 H (74-99) mg/dL Calcium 8.2 L 8.0 L 7.7 L (8.4-10.2) mg/dL Total Bilirubin 2.6 H 1.60 H 1.7 H (0.2-1.3) mg/dL AST 19 22 27 (14-36) U/L ALT 13 13 13 (4-34) U/L Alkaline Phosphatase 83 63 63 (38-126) U/L Total Protein 6.0 L 5.5 L 5.2 L (6.3-8.2) g/dL Albumin 3.1 L 3.0 L 2.6 L (3.5-5.0) g/dL - Imaging CT scan - abdomen: report reviewed, image reviewed CT scan - pelvis: report reviewed, image reviewed Assessment and Plan Assessment: Impression: Metastatic and locally recurrent endometrial carcinoma status post radiation therapy and chemotherapy. Enterovaginal fistula acute and chronic. Frequency incontinence secondary to radiation therapy. Mild bilateral hydronephrosis also secondary to radiation therapy. Recommendations: Given the severity and advanced nature of this disease I do not recommend any further urologic intervention. If she responds to therapy is going to have more extensive therapy then I would reassess hydronephrosis. At this point in time since is mild and her creatinine is normal I do not recommend doing anything this may be chronic given her radiation therapy.
[2021-10-16 17:33] LABS: Glucose,Whole Blood 229 mg/dL (70-110)
[2021-10-16 19:04] LABS: % Iron Saturation 21.57 (12.00-45.00); Iron 46 ug/dL (50-170); Total Iron Binding Capacity 213 ug/dL (228-460)
[2021-10-16 20:43] LABS: Glucose,Whole Blood 135 mg/dL (70-110)
[2021-10-16] MEDS ORDERED: OLANZapine 5 MG TAB PO SCH (21:00)
[2021-10-16] MEDS: ATORVASTATIN 10 MG TAB PO SCH (21:01)
[2021-10-16] MEDS: MELATONIN 5 MG TABLET PO SCH (21:06)
[2021-10-17] MEDS: VANCOMYCIN 1,500 MG in SODIUM CHLORIDE 0.9% 250 ML IVPB SCH ×2 (05:05→19:30)
[2021-10-17] MEDS: metroNIDAZOLE-NS PMX 500 MG in SALINE 1 100ML.BAG IVPB SCH ×4 (05:05→23:10)
[2021-10-17 07:30] LABS: Glucose,Whole Blood 73 mg/dL (70-110)
[2021-10-17] MEDS: INSULIN ASPART (NovoLOG) 100 UNIT/ML VIAL SQ SCH ×3 (07:30→17:57)
[2021-10-17] MEDS: lisinopriL 20 MG TAB PO SCH (08:10)
[2021-10-17] MEDS: GABAPENTIN 100 MG CAP PO SCH ×2 (08:10→20:44)
[2021-10-17] MEDS: KETOTIFEN 0.025% OPHTH DROPS 5 ML BTL BOTH EYES SCH ×2 (08:11→20:44)
[2021-10-17] MEDS: DORZOLAMIDE HCL 2% DROPS 10 ML BTL BOTH EYES SCH ×2 (08:11→20:45)
[2021-10-17] MEDS: IPRATROPIUM 0.5 MG/2.5 ML NEBU INHALATION SCH ×4 (08:42→19:20)
[2021-10-17 09:00] LABS: Magnesium 1.9 mg/dL (1.5-2.4)
[2021-10-17 09:10] LABS: African American GFR (CKD) 85.4 (60.0-200.0); Blood Urea Nitrogen 37.6 mg/dL (9.0-27.0); Non-African American GFR(CKD) 73.7 (60.0-200.0); Potassium 2.7 mmol/L (3.5-5.5)
[2021-10-17 10:16] LABS: HCT 21.3 % (37.2-46.3); HGB 7.2 g/dL (12.0-15.0); MCH 31.4 pg (27.0-32.0); MCHC 33.8 g/dL (32.0-37.0); Mean Platelet Volume 13.5 fL (9.5-12.2); NRBC Per 100 WBC 0 /100 WBCS (0.0-0.0); Platelet Count 41 X 10*3/uL (140-440); RBC 2.29 X 10*6/uL (4.10-5.20); RDW 15.4 % (11.5-14.5)
[2021-10-17 10:33] LABS: Basophils # (A) 0 X 10*3/uL (0.00-0.10); Basophils % (A) 0 %; Eosinophils # (A) 0.01 X 10*3/uL (0.04-0.35); Eosinophils % (A) 2.5 %; Immature Grans, Automated 2.5 %; Immature Platelet Fraction 9.3 % (1.1-6.1); Lymphocytes # (A) 0.22 X 10*3/uL (0.90-5.00); Monocytes # (A) 0.14 X 10*3/uL (0.20-1.00); Neutrophils # (A) 0.02 X 10*3/uL (1.80-7.70); Rouleaux PRESENT
[2021-10-17] MEDS: MORPHINE SULFATE 4 MG/ML SYRINGE IVP PRN ×2 (10:50→18:28)
[2021-10-17] MEDS: CEFEPIME 2 GM in SODIUM CHLORIDE 0.9% 100 ML IVPB SCH ×2 (10:51→20:42)
--- NOTE | 2021-10-17 10:52 | P.PN ---
Subjective Progress Note Date: 10/17/21 Principal diagnosis: Abdominal pain Patient is more alert today. Still having mild lower abdominal discomforts. Still having loose stools. Labs noted. No fevers. She is now nothing by mouth per oncology. Objective - Vital Signs Vital signs: Vital Signs Temp 97.5 F L 10/17/21 05:12 Pulse 78 10/17/21 08:52 Resp 18 10/17/21 05:12 BP 95/57 10/17/21 05:12 Pulse Ox 91 L 10/17/21 05:12 FiO2 Intake & Output 10/16/21 10/17/21 10/17/21 18:59 06:59 18:59 Intake Total 450 240 Balance 450 240 Intake: Intake, IV Titration 450 Amount Cefepime 2 gm In Sodium 100 Chloride 0.9% 100 ml @ 25 mls/hr IVPB Q12HR [facility] Rx #:[id number] Vancomycin 1,500 mg In 250 Sodium Chloride 0.9% 250 ml @ 125 mls/hr IVPB Q16H [facility] Rx#:[id number] metroNIDAZOLE-NS PMX 500 100 mg In Saline 1 100ml.bag @ 100 mls/hr IVPB Q6HR [facility] Rx#:[id number] Oral 240 Other: Voiding Method Bedside Commode Diaper Incontinent # Voids 1 # Bowel Movements 2 1 - Exam Abdomen: Soft, mild distention, mild lower abdominal tenderness, no rebound or guarding - Labs CBC & Chem 7: 10/17/21 03:32 10/17/21 03:32 Labs: Abnormal Lab Results - Last 24 Hours (Table) 10/16/21 10/16/21 10/16/21 Range/Units 05:10 05:10 05:10 WBC 0.36 L* (4.50-10.00) X 10*3/uL RBC 2.69 L (4.10-5.20) X 10*6/uL Hgb 8.3 L (12.0-15.0) g/dL Hct 25.1 L (37.2-46.3) % RDW 15.5 H (11.5-14.5) % Plt Count 58 L (140-440) X 10*3/uL Plt Count Comment DECREASED A MPV 12.6 H (9.5-12.2) fL Neutrophils # 0.05 L* (1.80-7.70) X 10*3/uL Lymphocytes # 0.21 L (0.90-5.00) X 10*3/uL Monocytes # 0.09 L (0.20-1.00) X 10*3/uL Eosinophils # 0.01 L (0.04-0.35) X 10*3/uL Immature Plt Fraction 9.0 H (1.1-6.1) % Sodium 129 L (135-145) mmol/L Potassium (3.5-5.1) mmol/L Chloride 95 L (96-109) mmol/L Carbon Dioxide (22-30) mmol/L BUN 33.3 H (9.0-27.0) mg/dL BUN/Creatinine Ratio 37.00 H (12.00-20.00) Ratio Glucose 245 H (70-110) mg/dL POC Glucose (mg/dL) (70-110) mg/dL Hemoglobin A1c 9.0 H (0.0-6.0) % Calcium 8.0 L (8.7-10.3) mg/dL Iron (50-170) ug/dL TIBC (228-460) ug/dL Transferrin (204.0-354.0) mg/dL Ferritin (10.0-291.0) ng/mL Total Bilirubin 1.60 H (0.30-1.20) mg/dL Conjugated Bilirubin 0.81 H (0.20-0.40) mg/dL Total Protein 5.5 L (6.2-8.2) g/dL Albumin 3.0 L (3.8-4.9) g/dL Albumin/Globulin Ratio 1.20 L (1.60-3.17) g/dL Amylase (30-110) U/L Lipase (23-300) U/L 10/16/21 10/16/21 10/16/21 Range/Units 11:39 12:28 17:25 WBC (4.50-10.00) X 10*3/uL RBC (4.10-5.20) X 10*6/uL Hgb (12.0-15.0) g/dL Hct (37.2-46.3) % RDW (11.5-14.5) % Plt Count (140-440) X 10*3/uL Plt Count Comment MPV (9.5-12.2) fL Neutrophils # (1.80-7.70) X 10*3/uL Lymphocytes # (0.90-5.00) X 10*3/uL Monocytes # (0.20-1.00) X 10*3/uL Eosinophils # (0.04-0.35) X 10*3/uL Immature Plt Fraction (1.1-6.1) % Sodium 129 L (135-145) mmol/L Potassium 3.4 L (3.5-5.1) mmol/L Chloride (96-109) mmol/L Carbon Dioxide 20 L (22-30) mmol/L BUN 37 H (9.0-27.0) mg/dL BUN/Creatinine Ratio (12.00-20.00) Ratio Glucose 145 H (70-110) mg/dL POC Glucose (mg/dL) 159 H 229 H (70-110) mg/dL Hemoglobin A1c (0.0-6.0) % Calcium 7.7 L (8.7-10.3) mg/dL Iron 46 L (50-170) ug/dL TIBC 213 L (228-460) ug/dL Transferrin 152.0 L (204.0-354.0) mg/dL Ferritin 1815.0 H (10.0-291.0) ng/mL Total Bilirubin 1.7 H (0.30-1.20) mg/dL Conjugated Bilirubin (0.20-0.40) mg/dL Total Protein 5.2 L (6.2-8.2) g/dL Albumin 2.6 L (3.8-4.9) g/dL Albumin/Globulin Ratio (1.60-3.17) g/dL Amylase <30 L (30-110) U/L Lipase 10 L (23-300) U/L 10/16/21 10/17/21 10/17/21 Range/Units 20:41 03:32 03:32 WBC 0.40 L* (4.50-10.00) X 10*3/uL RBC 2.29 L (4.10-5.20) X 10*6/uL Hgb 7.2 L (12.0-15.0) g/dL Hct 21.3 L (37.2-46.3) % RDW 15.4 H (11.5-14.5) % Plt Count 41 L (140-440) X 10*3/uL Plt Count Comment A MPV 13.5 H (9.5-12.2) fL Neutrophils # 0.02 L* (1.80-7.70) X 10*3/uL Lymphocytes # 0.22 L (0.90-5.00) X 10*3/uL Monocytes # 0.14 L (0.20-1.00) X 10*3/uL Eosinophils # 0.01 L (0.04-0.35) X 10*3/uL Immature Plt Fraction 9.3 H (1.1-6.1) % Sodium 132 L (135-145) mmol/L Potassium 2.7 L* (3.5-5.1) mmol/L Chloride (96-109) mmol/L Carbon Dioxide (22-30) mmol/L BUN 37.6 H (9.0-27.0) mg/dL BUN/Creatinine Ratio 47.00 H (12.00-20.00) Ratio Glucose 55 L (70-110) mg/dL POC Glucose (mg/dL) 135 H (70-110) mg/dL Hemoglobin A1c (0.0-6.0) % Calcium 8.0 L (8.7-10.3) mg/dL Iron (50-170) ug/dL TIBC (228-460) ug/dL Transferrin (204.0-354.0) mg/dL Ferritin (10.0-291.0) ng/mL Total Bilirubin (0.30-1.20) mg/dL Conjugated Bilirubin (0.20-0.40) mg/dL Total Protein (6.2-8.2) g/dL Albumin (3.8-4.9) g/dL Albumin/Globulin Ratio (1.60-3.17) g/dL Amylase (30-110) U/L Lipase (23-300) U/L Microbiology - Last 24 Hours (Table) 10/15/21 14:36 Blood Culture - Preliminary Blood No Growth after 24 hours 10/15/21 14:20 Blood Culture - Preliminary Blood No Growth after 24 hours Assessment and Plan (1) Chronic abdominal pain Narrative/Plan: Clinically patient seems to be slowly improving. Continue nothing by mouth for now. Monitor bowel function. Monitor neutropenia. We'll follow. Current Visit: Yes Status: Acute Code(s): R10.9 - UNSPECIFIED ABDOMINAL PAIN; G89.29 - OTHER CHRONIC PAIN SNOMED Code(s): 781511675
[2021-10-17 11:07] LABS: Glucose,Whole Blood 103 mg/dL (70-110)
[2021-10-17] MEDS: DEXTROSE 5%-0.45% NACL 1,000 ML IV SCH (12:08)
--- NOTE | 2021-10-17 12:10 | P.PN ---
Subjective Progress Note Date: 10/17/21 Principal diagnosis: Diarrhea follow up pt was seen looks dehydrated abd pain Watery diarrhea continued appetite is poor Objective - Vital Signs Vital signs: Vital Signs Temp 99.1 F 10/17/21 11:02 Pulse 88 10/17/21 11:45 Resp 18 10/17/21 11:02 BP 99/61 10/17/21 11:02 Pulse Ox 98 10/17/21 11:02 FiO2 Intake & Output 10/16/21 10/17/21 10/17/21 18:59 06:59 18:59 Intake Total 450 240 Balance 450 240 Intake: Intake, IV Titration 450 Amount Cefepime 2 gm In Sodium 100 Chloride 0.9% 100 ml @ 25 mls/hr IVPB Q12HR [facility] Rx #:[id number] Vancomycin 1,500 mg In 250 Sodium Chloride 0.9% 250 ml @ 125 mls/hr IVPB Q16H [facility] Rx#:[id number] metroNIDAZOLE-NS PMX 500 100 mg In Saline 1 100ml.bag @ 100 mls/hr IVPB Q6HR [facility] Rx#:[id number] Oral 240 Other: Voiding Method Bedside Commode Diaper Diaper Incontinent Incontinent # Voids 1 # Bowel Movements 2 1 - Exam Gen: looks chronically sick , Dehydrated. Loss of hair. mild distress. Poor cognition Neck: Supple Abd; Obese, mild tenderness. BS +ve Ht; NSR Lungs: CTAB. No crackles or wheezing Skin: Dry. Conjuctiva: yellow, pale - Labs CBC & Chem 7: 10/17/21 03:32 10/17/21 03:32 Labs: Abnormal Lab Results - Last 24 Hours (Table) 10/16/21 10/16/21 10/16/21 Range/Units 05:10 05:10 11:39 WBC (4.50-10.00) X 10*3/uL RBC (4.10-5.20) X 10*6/uL Hgb (12.0-15.0) g/dL Hct (37.2-46.3) % RDW (11.5-14.5) % Plt Count (140-440) X 10*3/uL Plt Count Comment MPV (9.5-12.2) fL Neutrophils # (1.80-7.70) X 10*3/uL Lymphocytes # (0.90-5.00) X 10*3/uL Monocytes # (0.20-1.00) X 10*3/uL Eosinophils # (0.04-0.35) X 10*3/uL Immature Plt Fraction (1.1-6.1) % Sodium 129 L 129 L (135-145) mmol/L Potassium 3.4 L (3.5-5.1) mmol/L Chloride 95 L (96-109) mmol/L Carbon Dioxide 20 L (22-30) mmol/L BUN 33.3 H 37 H (9.0-27.0) mg/dL BUN/Creatinine Ratio 37.00 H (12.00-20.00) Ratio Glucose 245 H 145 H (70-110) mg/dL POC Glucose (mg/dL) (70-110) mg/dL Hemoglobin A1c 9.0 H (0.0-6.0) % Calcium 8.0 L 7.7 L (8.7-10.3) mg/dL Iron 46 L (50-170) ug/dL TIBC 213 L (228-460) ug/dL Transferrin 152.0 L (204.0-354.0) mg/dL Ferritin 1815.0 H (10.0-291.0) ng/mL Total Bilirubin 1.60 H 1.7 H (0.30-1.20) mg/dL Conjugated Bilirubin 0.81 H (0.20-0.40) mg/dL Total Protein 5.5 L 5.2 L (6.2-8.2) g/dL Albumin 3.0 L 2.6 L (3.8-4.9) g/dL Albumin/Globulin Ratio 1.20 L (1.60-3.17) g/dL Amylase <30 L (30-110) U/L Lipase 10 L (23-300) U/L 10/16/21 10/16/21 10/16/21 Range/Units 12:28 17:25 20:41 WBC (4.50-10.00) X 10*3/uL RBC (4.10-5.20) X 10*6/uL Hgb (12.0-15.0) g/dL Hct (37.2-46.3) % RDW (11.5-14.5) % Plt Count (140-440) X 10*3/uL Plt Count Comment MPV (9.5-12.2) fL Neutrophils # (1.80-7.70) X 10*3/uL Lymphocytes # (0.90-5.00) X 10*3/uL Monocytes # (0.20-1.00) X 10*3/uL Eosinophils # (0.04-0.35) X 10*3/uL Immature Plt Fraction (1.1-6.1) % Sodium (135-145) mmol/L Potassium (3.5-5.1) mmol/L Chloride (96-109) mmol/L Carbon Dioxide (22-30) mmol/L BUN (9.0-27.0) mg/dL BUN/Creatinine Ratio (12.00-20.00) Ratio Glucose (70-110) mg/dL POC Glucose (mg/dL) 159 H 229 H 135 H (70-110) mg/dL Hemoglobin A1c (0.0-6.0) % Calcium (8.7-10.3) mg/dL Iron (50-170) ug/dL TIBC (228-460) ug/dL Transferrin (204.0-354.0) mg/dL Ferritin (10.0-291.0) ng/mL Total Bilirubin (0.30-1.20) mg/dL Conjugated Bilirubin (0.20-0.40) mg/dL Total Protein (6.2-8.2) g/dL Albumin (3.8-4.9) g/dL Albumin/Globulin Ratio (1.60-3.17) g/dL Amylase (30-110) U/L Lipase (23-300) U/L 10/17/21 10/17/21 Range/Units 03:32 03:32 WBC 0.40 L* (4.50-10.00) X 10*3/uL RBC 2.29 L (4.10-5.20) X 10*6/uL Hgb 7.2 L (12.0-15.0) g/dL Hct 21.3 L (37.2-46.3) % RDW 15.4 H (11.5-14.5) % Plt Count 41 L (140-440) X 10*3/uL Plt Count Comment A MPV 13.5 H (9.5-12.2) fL Neutrophils # 0.02 L* (1.80-7.70) X 10*3/uL Lymphocytes # 0.22 L (0.90-5.00) X 10*3/uL Monocytes # 0.14 L (0.20-1.00) X 10*3/uL Eosinophils # 0.01 L (0.04-0.35) X 10*3/uL Immature Plt Fraction 9.3 H (1.1-6.1) % Sodium 132 L (135-145) mmol/L Potassium 2.7 L* (3.5-5.1) mmol/L Chloride (96-109) mmol/L Carbon Dioxide (22-30) mmol/L BUN 37.6 H (9.0-27.0) mg/dL BUN/Creatinine Ratio 47.00 H (12.00-20.00) Ratio Glucose 55 L (70-110) mg/dL POC Glucose (mg/dL) (70-110) mg/dL Hemoglobin A1c (0.0-6.0) % Calcium 8.0 L (8.7-10.3) mg/dL Iron (50-170) ug/dL TIBC (228-460) ug/dL Transferrin (204.0-354.0) mg/dL Ferritin (10.0-291.0) ng/mL Total Bilirubin (0.30-1.20) mg/dL Conjugated Bilirubin (0.20-0.40) mg/dL Total Protein (6.2-8.2) g/dL Albumin (3.8-4.9) g/dL Albumin/Globulin Ratio (1.60-3.17) g/dL Amylase (30-110) U/L Lipase (23-300) U/L Microbiology - Last 24 Hours (Table) 10/15/21 14:36 Blood Culture - Preliminary Blood No Growth after 24 hours 10/15/21 14:20 Blood Culture - Preliminary Blood No Growth after 24 hours Assessment and Plan Plan: Acute on chronic watery Diarrhea Likley related to colitis induced by either chemo or rad therapy Pt look dehydrated. 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 Currently on Filgreastim Cont to monitor daily labs Mild hypoglycemia due to poor oral intake Started IV as above History of endometrial cancer, metastatic -Oncology consult - appreciate recs -Continue vancomycin, cefepime, flagyl per recs due to high risk Rectovaginal fistula -General surgery consulted - no further work up Poor prognosis Hypokalemia Due to poor oral intake Ordered Potassium chloride 60 meq total IV ( 10 meq x6 times q1 hr ) Hydronephrosis - Urology consult No further work up Hypertension Diabetes Hyperlipidemia Glaucoma -Home medications reviewed and reconciled -Hold home HCTZ, hold home oral glycemics -LD SSI Prognosis is poor Palliative care consulted
[2021-10-17] MEDS: POTASSIUM CHLORIDE 10 MEQ in WATER FOR INJECTION 1 100ML.BAG IVPB SCH ×6 (13:16→20:56)
[2021-10-17 13:49] VITALS: BMI 34.5
[2021-10-17 16:58] LABS: Glucose,Whole Blood 61 mg/dL (70-110)
[2021-10-17 17:34] LABS: Glucose,Whole Blood 57 mg/dL (70-110)
[2021-10-17] MEDS: FILGRASTIM-SNDZ 480 MCG/0.8 ML SYRINGE SQ SCH (18:00)
[2021-10-17 18:07] LABS: Glucose,Whole Blood 65 mg/dL (70-110)
[2021-10-17 18:29] LABS: Glucose,Whole Blood 85 mg/dL (70-110)
[2021-10-17] MEDS: ONDANSETRON 4 MG/2 ML VIAL IVP PRN (19:29)
[2021-10-17 20:39] LABS: Glucose,Whole Blood 69 mg/dL (70-110)
[2021-10-17] MEDS: MELATONIN 5 MG TABLET PO SCH (20:44)
[2021-10-17] MEDS: ATORVASTATIN 10 MG TAB PO SCH (20:44)
--- NOTE | 2021-10-18 01:04 | P.PN ---
Subjective Progress Note Date: 10/17/21 patient is still complaining of generalized weakness, somewhat generalized abdominal tenderness and diarrhea. She continues to report diminished appetite and intermittent nausea. No fever or chills. Objective - Vital Signs Vital signs: Vital Signs Temp 99.7 F H 10/17/21 21:00 Pulse 78 10/17/21 21:00 Resp 16 10/17/21 21:00 BP 96/49 10/17/21 21:00 Pulse Ox 94 L 10/17/21 21:00 FiO2 Intake & Output 10/17/21 10/17/21 10/18/21 06:59 18:59 06:59 Intake Total 240 800 Balance 240 800 Weight 85.729 kg Intake: Intake, IV Titration 800 Amount Cefepime 2 gm In Sodium 100 Chloride 0.9% 100 ml @ 25 mls/hr IVPB Q12HR [facility] Rx #:[id number] Dextrose 5%-0.45% NaCl 1, 200 000 ml @ 50 mls/hr IV . Q20H [facility] Rx#:[id number] Potassium Chloride 10 meq 300 In Water For Injection 1 100ml.bag @ 100 mls/hr IVPB Q1HR [facility] Rx#: [id number] metroNIDAZOLE-NS PMX 500 200 mg In Saline 1 100ml.bag @ 100 mls/hr IVPB Q6HR [facility] Rx#:[id number] Oral 240 Other: Voiding Method Bedside Commode Diaper Diaper Diaper Incontinent Incontinent Incontinent # Voids 1 # Bowel Movements 1 - Constitutional General appearance: Present: no acute distress - EENT Eyes: Present: EOMI ENT: Present: hearing grossly normal - Neck Thyroid: bilateral: normal size - Respiratory Respiratory: bilateral: CTA - Gastrointestinal Localized gastrointestinal: tender: diffuse - Integumentary Integumentary: Present: normal - Neurologic Neurologic: Present: CNII-XII intact - Musculoskeletal Musculoskeletal: Present: generalized weakness - Psychiatric Psychiatric: Present: A&O x's 3 - Labs CBC & Chem 7: 10/17/21 03:32 10/17/21 03:32 Labs: Abnormal Lab Results - Last 24 Hours (Table) 10/17/21 10/17/21 10/17/21 Range/Units 03:32 03:32 16:56 WBC 0.40 L* (4.50-10.00) X 10*3/uL RBC 2.29 L (4.10-5.20) X 10*6/uL Hgb 7.2 L (12.0-15.0) g/dL Hct 21.3 L (37.2-46.3) % RDW 15.4 H (11.5-14.5) % Plt Count 41 L (140-440) X 10*3/uL Plt Count Comment A MPV 13.5 H (9.5-12.2) fL Neutrophils # 0.02 L* (1.80-7.70) X 10*3/uL Lymphocytes # 0.22 L (0.90-5.00) X 10*3/uL Monocytes # 0.14 L (0.20-1.00) X 10*3/uL Eosinophils # 0.01 L (0.04-0.35) X 10*3/uL Immature Plt Fraction 9.3 H (1.1-6.1) % Sodium 132 L (135-145) mmol/L Potassium 2.7 L* (3.5-5.5) mmol/L BUN 37.6 H (9.0-27.0) mg/dL BUN/Creatinine Ratio 47.00 H (12.00-20.00) Ratio Glucose 55 L (70-110) mg/dL POC Glucose (mg/dL) 61 L (70-110) mg/dL Calcium 8.0 L (8.7-10.3) mg/dL 10/17/21 10/17/21 10/17/21 Range/Units 17:33 18:06 20:38 WBC (4.50-10.00) X 10*3/uL RBC (4.10-5.20) X 10*6/uL Hgb (12.0-15.0) g/dL Hct (37.2-46.3) % RDW (11.5-14.5) % Plt Count (140-440) X 10*3/uL Plt Count Comment MPV (9.5-12.2) fL Neutrophils # (1.80-7.70) X 10*3/uL Lymphocytes # (0.90-5.00) X 10*3/uL Monocytes # (0.20-1.00) X 10*3/uL Eosinophils # (0.04-0.35) X 10*3/uL Immature Plt Fraction (1.1-6.1) % Sodium (135-145) mmol/L Potassium (3.5-5.5) mmol/L BUN (9.0-27.0) mg/dL BUN/Creatinine Ratio (12.00-20.00) Ratio Glucose (70-110) mg/dL POC Glucose (mg/dL) 57 L 65 L 69 L (70-110) mg/dL Calcium (8.7-10.3) mg/dL Microbiology - Last 24 Hours (Table) 10/15/21 14:36 Blood Culture - Preliminary Blood No Growth after 48 hours 10/15/21 14:20 Blood Culture - Final Blood Assessment and Plan (1) Antineoplastic chemotherapy induced pancytopenia Narrative/Plan: this is to fairly significant, especially in terms of the white cell line. There is very slow and minimal increase in the WBC. Continue G-CSF. Continue to monitor counts with transfusion support to keep hemoglobin greater than 7 and platelets greater than 10. Current Visit: Yes Status: Acute Priority: High Code(s): D61.810 - A NTINEOPLASTIC CHEMOTHERAPY INDUCED PANCYTOPENIA; T45.1X5A - ADVERSE EFFECT OF ANTINEOPLASTIC AND IMMUNOSUP DRUGS, INIT SNOMED Code(s): 327764204824453 (2) Enterocolitis Narrative/Plan: the patient appears to have enterocolitis related to neutropenia. She is on IV antibiotics, with plan to keep her nothing by mouth, other than ice chips and medications with sips of water. This was discussed with general surgery. We are in agreement. Continue to monitor, and advance diet once WBC and symptoms are improved. She was advised that we do expect fairly rapid improvement in symptoms Once count recovery occurs. Current Visit: Yes Status: Acute Code(s): K52.9 - NONINFECTIVE GASTROENTERITIS AND COLITIS, UNSPECIFIED SNOMED Code(s): 57625212 (3) Endometrial carcinoma Narrative/Plan: the patient states chemotherapy is no new for another one half weeks. At this time the plan would be to proceed on scheduled as long as the patient is sufficiently recovered from her acute event. Otherwise treatment can be delayed. In addition, either way, the patient will need dose reduction, and G- CSF support upfront with subsequent treatments. Current Visit: Yes Status: Acute Priority: High Code(s): C54.1 - MALIGNANT NEOPLASM OF ENDOMETRIUM SNOMED Code(s): 675463321
[2021-10-18 02:02] LABS: Glucose,Whole Blood 68 mg/dL (70-110)
[2021-10-18 02:02] LABS: Glucose,Whole Blood 62 mg/dL (70-110)
[2021-10-18] MEDS: MORPHINE SULFATE 4 MG/ML SYRINGE IVP PRN ×4 (02:43→19:22)
[2021-10-18] MEDS: ONDANSETRON 4 MG/2 ML VIAL IVP PRN ×4 (03:03→15:16)
[2021-10-18 03:04] LABS: Glucose,Whole Blood 69 mg/dL (70-110)
[2021-10-18 03:28] LABS: Glucose,Whole Blood 78 mg/dL (70-110)
[2021-10-18] MEDS: metroNIDAZOLE-NS PMX 500 MG in SALINE 1 100ML.BAG IVPB SCH ×3 (06:12→17:30)
[2021-10-18] MEDS: GABAPENTIN 100 MG CAP PO SCH ×2 (07:20→21:17)
[2021-10-18] MEDS: lisinopriL 20 MG TAB PO SCH (07:21)
[2021-10-18] MEDS: CEFEPIME 2 GM in SODIUM CHLORIDE 0.9% 100 ML IVPB SCH (07:25)
[2021-10-18] MEDS: KETOTIFEN 0.025% OPHTH DROPS 5 ML BTL BOTH EYES SCH ×2 (07:30→21:23)
[2021-10-18] MEDS: INSULIN ASPART (NovoLOG) 100 UNIT/ML VIAL SQ SCH ×3 (07:31→17:43)
[2021-10-18] MEDS: DORZOLAMIDE HCL 2% DROPS 10 ML BTL BOTH EYES SCH ×2 (07:31→21:23)
[2021-10-18 07:33] LABS: Glucose,Whole Blood 127 mg/dL (70-110)
[2021-10-18] MEDS ORDERED: VANCOMYCIN TROUGH DUE 1 EACH MISC MISCELLANE ONE (09:00)
[2021-10-18] MEDS: IPRATROPIUM 0.5 MG/2.5 ML NEBU INHALATION SCH ×4 (09:35→20:13)
[2021-10-18 10:06] LABS: HCT 24.2 % (34.0-46.0); HGB 8.2 gm/dL (11.4-16.0); MCH 32.3 pg (25.0-35.0); MCHC 33.7 g/dL (31.0-37.0); MCV 95.9 fL (80.0-100.0); Mean Platelet Volume 11.4; Platelet Count 70 k/uL (150-450); RBC 2.52 m/uL (3.80-5.40); RDW 14.9 % (11.5-15.5)
[2021-10-18 10:08] LABS: WBC 0.6 k/uL (3.8-10.6)
[2021-10-18 10:14] LABS: ALT 19 U/L (4-34); AST 71 U/L (14-36); African American GFR (CKD) 36 (>60 ml/min/1.73 sqM); Albumin 2.6 g/dL (3.5-5.0); Albumin/Globulin Ratio 0.9; Alkaline Phosphatase 66 U/L (38-126); Anion Gap 12 mmol/L; Blood Urea Nitrogen 50 mg/dL (7-17); Calcium 8.1 mg/dL (8.4-10.2); Carbon Dioxide 20 mmol/L (22-30); Chloride 96 mmol/L (98-107); Globulin 2.8 g/dL; Glucose 152 mg/dL (74-99); Non-African American GFR(CKD) 31 (>60 ml/min/1.73 sqM); Potassium 3.2 mmol/L (3.5-5.1); Sodium 128 mmol/L (137-145); Total Bilirubin 1.3 mg/dL (0.2-1.3); Total Protein 5.4 g/dL (6.3-8.2)
--- NOTE | 2021-10-18 10:22 | P.PN ---
Subjective Progress Note Date: 10/18/21 Principal diagnosis: Abdominal pain Patient complaining of nausea today. Still having loose stools. She has had vomiting overnight as well. Labs noted. Objective - Vital Signs Vital signs: Vital Signs Temp 99.0 F 10/18/21 05:00 Pulse 100 10/18/21 05:00 Resp 16 10/18/21 05:00 BP 93/53 10/18/21 05:00 Pulse Ox 94 L 10/18/21 05:00 FiO2 Intake & Output 10/17/21 10/18/21 10/18/21 18:59 06:59 18:59 Intake Total 800 710 Output Total 100 Balance 800 610 Weight 85.729 kg Intake: Intake, IV Titration 800 Amount Cefepime 2 gm In Sodium 100 Chloride 0.9% 100 ml @ 25 mls/hr IVPB Q12HR [facility] Rx #:[id number] Dextrose 5%-0.45% NaCl 1, 200 000 ml @ 50 mls/hr IV . Q20H [facility] Rx#:[id number] Potassium Chloride 10 meq 300 In Water For Injection 1 100ml.bag @ 100 mls/hr IVPB Q1HR [facility] Rx#: [id number] metroNIDAZOLE-NS PMX 500 200 mg In Saline 1 100ml.bag @ 100 mls/hr IVPB Q6HR [facility] Rx#:[id number] Oral 710 Output: Emesis 100 Other: Voiding Method Diaper Diaper Incontinent Incontinent # Voids 2 - Exam Abdomen: Soft, mild distention, mild lower abdominal tenderness - Labs CBC & Chem 7: 10/18/21 09:43 10/18/21 09:43 Labs: Abnormal Lab Results - Last 24 Hours (Table) 10/17/21 10/17/21 10/17/21 Range/Units 03:32 16:56 17:33 WBC 0.40 L* (4.50-10.00) X 10*3/uL RBC 2.29 L (4.10-5.20) X 10*6/uL Hgb 7.2 L (12.0-15.0) g/dL Hct 21.3 L (37.2-46.3) % RDW 15.4 H (11.5-14.5) % Plt Count 41 L (140-440) X 10*3/uL Plt Count Comment A MPV 13.5 H (9.5-12.2) fL Neutrophils # 0.02 L* (1.80-7.70) X 10*3/uL Lymphocytes # 0.22 L (0.90-5.00) X 10*3/uL Monocytes # 0.14 L (0.20-1.00) X 10*3/uL Eosinophils # 0.01 L (0.04-0.35) X 10*3/uL Immature Plt Fraction 9.3 H (1.1-6.1) % Sodium (137-145) mmol/L Potassium (3.5-5.1) mmol/L Chloride (98-107) mmol/L Carbon Dioxide (22-30) mmol/L BUN (7-17) mg/dL Creatinine (0.52-1.04) mg/dL Glucose (74-99) mg/dL POC Glucose (mg/dL) 61 L 57 L (70-110) mg/dL Calcium (8.4-10.2) mg/dL AST (14-36) U/L Total Protein (6.3-8.2) g/dL Albumin (3.5-5.0) g/dL 10/17/21 10/17/21 10/17/21 Range/Units 18:06 20:38 21:12 WBC (4.50-10.00) X 10*3/uL RBC (4.10-5.20) X 10*6/uL Hgb (12.0-15.0) g/dL Hct (37.2-46.3) % RDW (11.5-14.5) % Plt Count (140-440) X 10*3/uL Plt Count Comment MPV (9.5-12.2) fL Neutrophils # (1.80-7.70) X 10*3/uL Lymphocytes # (0.90-5.00) X 10*3/uL Monocytes # (0.20-1.00) X 10*3/uL Eosinophils # (0.04-0.35) X 10*3/uL Immature Plt Fraction (1.1-6.1) % Sodium (137-145) mmol/L Potassium (3.5-5.1) mmol/L Chloride (98-107) mmol/L Carbon Dioxide (22-30) mmol/L BUN (7-17) mg/dL Creatinine (0.52-1.04) mg/dL Glucose (74-99) mg/dL POC Glucose (mg/dL) 65 L 69 L 68 L (70-110) mg/dL Calcium (8.4-10.2) mg/dL AST (14-36) U/L Total Protein (6.3-8.2) g/dL Albumin (3.5-5.0) g/dL 10/18/21 10/18/21 10/18/21 Range/Units 01:59 03:03 07:31 WBC (4.50-10.00) X 10*3/uL RBC (4.10-5.20) X 10*6/uL Hgb (12.0-15.0) g/dL Hct (37.2-46.3) % RDW (11.5-14.5) % Plt Count (140-440) X 10*3/uL Plt Count Comment MPV (9.5-12.2) fL Neutrophils # (1.80-7.70) X 10*3/uL Lymphocytes # (0.90-5.00) X 10*3/uL Monocytes # (0.20-1.00) X 10*3/uL Eosinophils # (0.04-0.35) X 10*3/uL Immature Plt Fraction (1.1-6.1) % Sodium (137-145) mmol/L Potassium (3.5-5.1) mmol/L Chloride (98-107) mmol/L Carbon Dioxide (22-30) mmol/L BUN (7-17) mg/dL Creatinine (0.52-1.04) mg/dL Glucose (74-99) mg/dL POC Glucose (mg/dL) 62 L 69 L 127 H (70-110) mg/dL Calcium (8.4-10.2) mg/dL AST (14-36) U/L Total Protein (6.3-8.2) g/dL Albumin (3.5-5.0) g/dL 10/18/21 10/18/21 Range/Units 09:43 09:43 WBC 0.6 L* (4.50-10.00) X 10*3/uL RBC 2.52 L (4.10-5.20) X 10*6/uL Hgb 8.2 L (12.0-15.0) g/dL Hct 24.2 L (37.2-46.3) % RDW (11.5-14.5) % Plt Count 70 L (140-440) X 10*3/uL Plt Count Comment MPV (9.5-12.2) fL Neutrophils # (1.80-7.70) X 10*3/uL Lymphocytes # (0.90-5.00) X 10*3/uL Monocytes # (0.20-1.00) X 10*3/uL Eosinophils # (0.04-0.35) X 10*3/uL Immature Plt Fraction (1.1-6.1) % Sodium 128 L (137-145) mmol/L Potassium 3.2 L (3.5-5.1) mmol/L Chloride 96 L (98-107) mmol/L Carbon Dioxide 20 L (22-30) mmol/L BUN 50 H (7-17) mg/dL Creatinine 1.63 H (0.52-1.04) mg/dL Glucose 152 H (74-99) mg/dL POC Glucose (mg/dL) (70-110) mg/dL Calcium 8.1 L (8.4-10.2) mg/dL AST 71 H (14-36) U/L Total Protein 5.4 L (6.3-8.2) g/dL Albumin 2.6 L (3.5-5.0) g/dL Microbiology - Last 24 Hours (Table) 10/15/21 14:36 Blood Culture - Preliminary Blood No Growth after 48 hours 10/15/21 14:20 Blood Culture - Final Blood Assessment and Plan (1) Chronic abdominal pain Narrative/Plan: Overall patient seems to be doing about the same. Unfortunately she has had some increased nausea and vomiting overnight. Keep nothing by mouth for now. Minimize narcotic use. Follow labs. Current Visit: Yes Status: Acute Code(s): R10.9 - UNSPECIFIED ABDOMINAL PAIN; G89.29 - OTHER CHRONIC PAIN SNOMED Code(s): 047720829
[2021-10-18] MEDS ORDERED: VANCOMYCIN IV PER PHARMACY 1 EACH MISC MISCELLANE PRN (10:27)
[2021-10-18] MEDS: VANCOMYCIN 1,500 MG in SODIUM CHLORIDE 0.9% 250 ML IVPB SCH (10:29)
[2021-10-18 10:49] LABS: Rouleaux Present
[2021-10-18] MEDS: LORazepam 2 MG/ML INJ IV PRN ×2 (12:10→21:40)
[2021-10-18 12:12] LABS: Glucose,Whole Blood 221 mg/dL (70-110)
[2021-10-18] MEDS: DEXTROSE 5%-0.45% NACL 1,000 ML IV SCH (13:27)
[2021-10-18] MEDS ORDERED: Potassium Replacement Protocol 1 EACH MISC MISCELLANE PRN (14:42)
--- NOTE | 2021-10-18 14:47 | P.PN ---
Subjective Progress Note Date: 10/18/21 Principal diagnosis: Nausea and vomiting Still nauseous Throwing up Poor appetite NPO Abd pain very tired Back pain Diarrhea continues Objective - Vital Signs Vital signs: Vital Signs Temp 99.7 F H 10/18/21 12:07 Pulse 106 H 10/18/21 12:07 Resp 20 10/18/21 12:07 BP 99/63 10/18/21 12:07 Pulse Ox 92 L 10/18/21 12:07 FiO2 Intake & Output 10/17/21 10/18/21 10/18/21 18:59 06:59 18:59 Intake Total 800 710 Output Total 100 Balance 800 610 Weight 85.729 kg Intake: Intake, IV Titration 800 Amount Cefepime 2 gm In Sodium 100 Chloride 0.9% 100 ml @ 25 mls/hr IVPB Q12HR [facility] Rx #:[id number] Dextrose 5%-0.45% NaCl 1, 200 000 ml @ 50 mls/hr IV . Q20H [facility] Rx#:[id number] Potassium Chloride 10 meq 300 In Water For Injection 1 100ml.bag @ 100 mls/hr IVPB Q1HR [facility] Rx#: [id number] metroNIDAZOLE-NS PMX 500 200 mg In Saline 1 100ml.bag @ 100 mls/hr IVPB Q6HR [facility] Rx#:[id number] Oral 710 Output: Emesis 100 Other: Voiding Method Diaper Diaper Diaper Incontinent Incontinent Incontinent # Voids 2 1 # Bowel Movements 1 - Exam Gen: looks chronically sick , Dehydrated. Loss of hair. mild distress. Poor cognition Neck: Supple Abd; Obese, mild tenderness. BS +ve Ht; NSR Lungs: CTAB. No crackles or wheezing Skin: Dry. Conjuctiva: yellow, pale - Labs CBC & Chem 7: 10/18/21 09:43 10/18/21 09:43 Labs: Abnormal Lab Results - Last 24 Hours (Table) 10/17/21 10/17/21 10/17/21 Range/Units 16:56 17:33 18:06 WBC (3.8-10.6) k/uL RBC (3.80-5.40) m/uL Hgb (11.4-16.0) gm/dL Hct (34.0-46.0) % Plt Count (150-450) k/uL Sodium (137-145) mmol/L Potassium (3.5-5.1) mmol/L Chloride (98-107) mmol/L Carbon Dioxide (22-30) mmol/L BUN (7-17) mg/dL Creatinine (0.52-1.04) mg/dL Glucose (74-99) mg/dL POC Glucose (mg/dL) 61 L 57 L 65 L (70-110) mg/dL Calcium (8.4-10.2) mg/dL AST (14-36) U/L Total Protein (6.3-8.2) g/dL Albumin (3.5-5.0) g/dL Vancomycin Trough ug/mL 10/17/21 10/17/21 10/18/21 Range/Units 20:38 21:12 01:59 WBC (3.8-10.6) k/uL RBC (3.80-5.40) m/uL Hgb (11.4-16.0) gm/dL Hct (34.0-46.0) % Plt Count (150-450) k/uL Sodium (137-145) mmol/L Potassium (3.5-5.1) mmol/L Chloride (98-107) mmol/L Carbon Dioxide (22-30) mmol/L BUN (7-17) mg/dL Creatinine (0.52-1.04) mg/dL Glucose (74-99) mg/dL POC Glucose (mg/dL) 69 L 68 L 62 L (70-110) mg/dL Calcium (8.4-10.2) mg/dL AST (14-36) U/L Total Protein (6.3-8.2) g/dL Albumin (3.5-5.0) g/dL Vancomycin Trough ug/mL 10/18/21 10/18/21 10/18/21 Range/Units 03:03 07:31 09:43 WBC (3.8-10.6) k/uL RBC (3.80-5.40) m/uL Hgb (11.4-16.0) gm/dL Hct (34.0-46.0) % Plt Count (150-450) k/uL Sodium (137-145) mmol/L Potassium (3.5-5.1) mmol/L Chloride (98-107) mmol/L Carbon Dioxide (22-30) mmol/L BUN (7-17) mg/dL Creatinine (0.52-1.04) mg/dL Glucose (74-99) mg/dL POC Glucose (mg/dL) 69 L 127 H (70-110) mg/dL Calcium (8.4-10.2) mg/dL AST (14-36) U/L Total Protein (6.3-8.2) g/dL Albumin (3.5-5.0) g/dL Vancomycin Trough 30.9 H* ug/mL 10/18/21 10/18/21 10/18/21 Range/Units 09:43 09:43 12:11 WBC 0.6 L* (3.8-10.6) k/uL RBC 2.52 L (3.80-5.40) m/uL Hgb 8.2 L (11.4-16.0) gm/dL Hct 24.2 L (34.0-46.0) % Plt Count 70 L (150-450) k/uL Sodium 128 L (137-145) mmol/L Potassium 3.2 L (3.5-5.1) mmol/L Chloride 96 L (98-107) mmol/L Carbon Dioxide 20 L (22-30) mmol/L BUN 50 H (7-17) mg/dL Creatinine 1.63 H (0.52-1.04) mg/dL Glucose 152 H (74-99) mg/dL POC Glucose (mg/dL) 221 H (70-110) mg/dL Calcium 8.1 L (8.4-10.2) mg/dL AST 71 H (14-36) U/L Total Protein 5.4 L (6.3-8.2) g/dL Albumin 2.6 L (3.5-5.0) g/dL Vancomycin Trough ug/mL Microbiology - Last 24 Hours (Table) 10/15/21 14:36 Blood Culture - Preliminary Blood No Growth after 48 hours 10/15/21 14:20 Blood Culture - Final Blood Assessment and Plan Plan: Acute on chronic watery Diarrhea Likley related to colitis induced by chemo Pt look dehydrated. 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 No sensitivities Pt is on Vanco, cefepime, flagyl Repeat Blood culture if possibel History of endometrial cancer, metastatic -Oncology consult - appreciate recs -Continue vancomycin, cefepime, flagyl per recs due to high risk Rectovaginal fistula -General surgery consulted - no further work up Poor prognosis Hypokalemia Due to poor oral intake Ordered Potassium [id number] meq total IV ( 10 meq x4 times q1 hr ) Nausea and vomiting Multifactorial Recommend PRN Zofran Hydronephrosis - Urology consult No further work up Hypertension Diabetes Hyperlipidemia Glaucoma -Home medications reviewed and reconciled -Hold home HCTZ, hold home oral glycemics -LD SSI Prognosis is poor Palliative care consulted Discussed with oncology In my opinion the pat has very poor prognosis and she is in a lot of pain. Recommend palliative care and / or hospice
[2021-10-18] MEDS: POTASSIUM CHLORIDE 10 MEQ in WATER FOR INJECTION 1 100ML.BAG IVPB SCH ×4 (15:17→18:59)
[2021-10-18] MEDS: FILGRASTIM-SNDZ 480 MCG/0.8 ML SYRINGE SQ SCH (17:30)
[2021-10-18 17:32] LABS: Glucose,Whole Blood 196 mg/dL (70-110)
[2021-10-18] MEDS: CEFEPIME 1 GM in SODIUM CHLORIDE 0.9% 50 ML IVPB SCH (21:16)
[2021-10-18] MEDS: ATORVASTATIN 10 MG TAB PO SCH (21:17)
[2021-10-18] MEDS: MELATONIN 5 MG TABLET PO SCH (21:17)
[2021-10-18 21:27] VITALS: RESP 16
[2021-10-18 21:37] LABS: Glucose,Whole Blood 161 mg/dL (70-110)
--- NOTE | 2021-10-18 23:50 | P.PN ---
Subjective Progress Note Date: 10/18/21 the patient is complaining of some increased nausea and vomiting of clear fluid today intermixed with some dark brown fluid. No bleeding in the stool or urine. No fevers, chills Objective - Vital Signs Vital signs: Vital Signs Temp 98.0 F 10/18/21 20:18 Pulse 101 H 10/18/21 20:18 Resp 16 10/18/21 20:18 BP 84/53 10/18/21 20:18 Pulse Ox 90 L 10/18/21 20:18 FiO2 21 10/18/21 20:13 Intake & Output 10/18/21 10/18/21 10/19/21 06:59 18:59 06:59 Intake Total 710 1250 Output Total 100 Balance 610 1250 Intake: Intake, IV Titration 1250 Amount Cefepime 1 gm In Sodium 50 Chloride 0.9% 50 ml @ 12. 5 mls/hr IVPB Q12HR [facility] Rx#:[id number] Dextrose 5%-0.45% NaCl 1, 600 000 ml @ 50 mls/hr IV . Q20H [facility] Rx#:[id number] Potassium Chloride 10 meq 400 In Water For Injection 1 100ml.bag @ 100 mls/hr IVPB Q1HR [facility] Rx#: [id number] metroNIDAZOLE-NS PMX 500 200 mg In Saline 1 100ml.bag @ 100 mls/hr IVPB Q6HR [facility] Rx#:[id number] Oral 710 Output: Emesis 100 Other: Voiding Method Diaper Diaper Diaper Incontinent Incontinent Incontinent # Voids 2 1 0 # Bowel Movements 1 1 - Constitutional General appearance: Present: mild distress - EENT Eyes: Present: EOMI, PERRLA ENT: Present: hearing grossly normal, normal oropharynx - Respiratory Respiratory: bilateral: CTA - Cardiovascular Rhythm: regular Heart sounds: normal: S1, S2 - Gastrointestinal General gastrointestinal: Present: normal bowel sounds, soft Localized gastrointestinal: tender: diffuse (improved) - Integumentary Integumentary: Present: normal - Neurologic Neurologic: Present: CNII-XII intact - Musculoskeletal Musculoskeletal: Present: generalized weakness, strength equal bilaterally - Psychiatric Psychiatric: Present: A&O x's 3 - Labs CBC & Chem 7: 10/18/21 09:43 10/18/21 09:43 Labs: Abnormal Lab Results - Last 24 Hours (Table) 10/17/21 10/18/21 10/18/21 Range/Units 21:12 01:59 03:03 WBC (3.8-10.6) k/uL RBC (3.80-5.40) m/uL Hgb (11.4-16.0) gm/dL Hct (34.0-46.0) % Plt Count (150-450) k/uL Sodium (137-145) mmol/L Potassium (3.5-5.1) mmol/L Chloride (98-107) mmol/L Carbon Dioxide (22-30) mmol/L BUN (7-17) mg/dL Creatinine (0.52-1.04) mg/dL Glucose (74-99) mg/dL POC Glucose (mg/dL) 68 L 62 L 69 L (70-110) mg/dL Calcium (8.4-10.2) mg/dL AST (14-36) U/L Total Protein (6.3-8.2) g/dL Albumin (3.5-5.0) g/dL Vancomycin Trough ug/mL 10/18/21 10/18/21 10/18/21 Range/Units 07:31 09:43 09:43 WBC 0.6 L* (3.8-10.6) k/uL RBC 2.52 L (3.80-5.40) m/uL Hgb 8.2 L (11.4-16.0) gm/dL Hct 24.2 L (34.0-46.0) % Plt Count 70 L (150-450) k/uL Sodium (137-145) mmol/L Potassium (3.5-5.1) mmol/L Chloride (98-107) mmol/L Carbon Dioxide (22-30) mmol/L BUN (7-17) mg/dL Creatinine (0.52-1.04) mg/dL Glucose (74-99) mg/dL POC Glucose (mg/dL) 127 H (70-110) mg/dL Calcium (8.4-10.2) mg/dL AST (14-36) U/L Total Protein (6.3-8.2) g/dL Albumin (3.5-5.0) g/dL Vancomycin Trough 30.9 H* ug/mL 10/18/21 10/18/21 10/18/21 Range/Units 09:43 12:11 17:31 WBC (3.8-10.6) k/uL RBC (3.80-5.40) m/uL Hgb (11.4-16.0) gm/dL Hct (34.0-46.0) % Plt Count (150-450) k/uL Sodium 128 L (137-145) mmol/L Potassium 3.2 L (3.5-5.1) mmol/L Chloride 96 L (98-107) mmol/L Carbon Dioxide 20 L (22-30) mmol/L BUN 50 H (7-17) mg/dL Creatinine 1.63 H (0.52-1.04) mg/dL Glucose 152 H (74-99) mg/dL POC Glucose (mg/dL) 221 H 196 H (70-110) mg/dL Calcium 8.1 L (8.4-10.2) mg/dL AST 71 H (14-36) U/L Total Protein 5.4 L (6.3-8.2) g/dL Albumin 2.6 L (3.5-5.0) g/dL Vancomycin Trough ug/mL 10/18/21 Range/Units 21:35 WBC (3.8-10.6) k/uL RBC (3.80-5.40) m/uL Hgb (11.4-16.0) gm/dL Hct (34.0-46.0) % Plt Count (150-450) k/uL Sodium (137-145) mmol/L Potassium (3.5-5.1) mmol/L Chloride (98-107) mmol/L Carbon Dioxide (22-30) mmol/L BUN (7-17) mg/dL Creatinine (0.52-1.04) mg/dL Glucose (74-99) mg/dL POC Glucose (mg/dL) 161 H (70-110) mg/dL Calcium (8.4-10.2) mg/dL AST (14-36) U/L Total Protein (6.3-8.2) g/dL Albumin (3.5-5.0) g/dL Vancomycin Trough ug/mL Microbiology - Last 24 Hours (Table) 10/15/21 14:20 Blood Culture Gram Stain - Preliminary Blood 08/04/22 14:36 Blood Culture - Preliminary Blood No Growth after 72 hours Assessment and Plan (1) Antineoplastic chemotherapy induced pancytopenia Narrative/Plan: CBC today shows somewhat more distant improvement, with increase in hemoglobin and platelets. WBC is also increased to 0.6. Continue growth factors till WBC normalizes Current Visit: Yes Status: Acute Priority: High Code(s): D61.810 - ANTINEOPLASTIC CHEMOTHERAPY INDUCED PANCYTOPENIA; T45.1X5A - ADVERSE EFFECT OF ANTINEOPLASTIC AND IMMUNOSUP DRUGS, INIT SNOMED Code(s): 589744721826463 (2) Enterocolitis Narrative/Plan: examination is improved today. However, it is expected that bowel inflammation within persistent and WAC normalizes. Therefore, continue bowel rest, with IV fluid support. Start to advance diet once WBC is in a safe range, specifically ANC greater than 1000. Current Visit: Yes Status: Acute Code(s): K52.9 - NONINFECTIVE GASTROENTERITIS AND COLITIS, UNSPECIFIED SNOMED Code(s): 98667859 (3) Endometrial carcinoma Narrative/Plan: case discussed in detail with admitting service. It is expected that the patient will improve clinically, Once her counts resolved. Once performance status is improved sufficiently, we will discuss resumption of treatment. To resume treatment, the patient will require dose reduction, as well as upfront u se of G-CSF. Current Visit: Yes Status: Acute Priority: High Code(s): C54.1 - MALIGNANT NEOPLASM OF ENDOMETRIUM SNOMED Code(s): 753549707
[2021-10-19] MEDS: metroNIDAZOLE-NS PMX 500 MG in SALINE 1 100ML.BAG IVPB SCH ×2 (00:38→06:20)
[2021-10-19] MEDS: MORPHINE SULFATE 4 MG/ML SYRINGE IVP PRN ×3 (00:43→12:16)
[2021-10-19 07:18] LABS: Glucose,Whole Blood 226 mg/dL (70-110)
[2021-10-19] MEDS: IPRATROPIUM 0.5 MG/2.5 ML NEBU INHALATION SCH ×2 (08:20→11:27)
[2021-10-19] MEDS: GABAPENTIN 100 MG CAP PO SCH (08:57)
[2021-10-19] MEDS: DORZOLAMIDE HCL 2% DROPS 10 ML BTL BOTH EYES SCH (08:57)
[2021-10-19] MEDS: lisinopriL 20 MG TAB PO SCH (08:57)
[2021-10-19] MEDS: KETOTIFEN 0.025% OPHTH DROPS 5 ML BTL BOTH EYES SCH (08:57)
[2021-10-19] MEDS: INSULIN ASPART (NovoLOG) 100 UNIT/ML VIAL SQ SCH (09:13)
[2021-10-19] MEDS: CEFEPIME 1 GM in SODIUM CHLORIDE 0.9% 50 ML IVPB SCH (09:30)
[2021-10-19 09:52] LABS: HCT 22.2 % (37.2-46.3); HGB 7.5 g/dL (12.0-15.0); MCH 31.3 pg (27.0-32.0); MCHC 33.8 g/dL (32.0-37.0); MCV 92.5 fL (80.0-97.0); Mean Platelet Volume 12.4 fL (9.5-12.2); Platelet Count 90 X 10*3/uL (140-440); RDW 15.8 % (11.5-14.5); WBC 1.94 X 10*3/uL (4.50-10.00)
--- NOTE | 2021-10-19 09:52 | XR ---
EXAMINATION TYPE: XR chest 1V portable DATE OF EXAM: 10/19/2021 9:38 AM COMPARISON: Chest radiographs from 10/15/2021 TECHNIQUE: XR chest 1V portable Frontal view of the chest. CLINICAL INDICATION:Female, 71 years old with history of congestion; FINDINGS: Lungs/Pleura: Low lung volumes are present. There is no evidence of pleural effusion, focal consolida tion, or pneumothorax. Prominent perihilar lung markings. Heart/mediastinum: Cardiomediastinal silhouette is unremarkable. Atherosclerotic calcifications are seen in the aorta. Musculoskeletal: No acute osseous pathology. IMPRESSION: Low lung volumes with prominent perihilar lung markings which could represent atelectasis versus pulm onary edema.
[2021-10-19 09:53] LABS: Acanthocytes 2+; Anisocytosis (M) 2+; Basophils # (M) 0 X 10*3/uL (0.00-0.10); Eosinophils # (M) 0 X 10*3/uL (0.04-0.35); Lymphocytes # (M) 0.49 X 10*3/uL (0.90-5.00); Metamyelocytes % 1 % (0-0); Monocytes # (M) 0.81 X 10*3/uL (0.20-1.00); Neutrophils # (M) 0.62 X 10*3/uL (2.00-8.90); Neutrophils % (M) 32 %
[2021-10-19 11:36] VITALS: BP 79/47; PULSE 103; TEMP 96.6
[2021-10-19] MEDS: ONDANSETRON 4 MG/2 ML VIAL IVP PRN (12:16)
--- NOTE | 2021-10-19 12:28 | P.CONS ---
History of Present Illness - Reason for Consult Consult date: 10/19/21 [facility] Requesting physician: Braxton George - Chief Complaint intractable nausea/vomiting, abdominal pain - History of Present Illness The patient is a 71-year-old woman with a past medical history of metastatic endometrial cancer, hypertension, diabetes, hyperlipidemia, glaucoma. She presented to the on 10/15/21 with abdominal pain, nausea, vomiting, diarrhea, and fevers. The patient reported that she got her last chemotherapy treatment approximately a week and a half ago, and since that time she's had worsening diarrhea, chills, fevers and has had poor by mouth intake. She says that she's never had a reaction this bad to her chemotherapy before. She also endorses having stool in her urine and coming through her vagina, which has been present for approximately 4 weeks. She has a history of radiation to the pelvis, but has never had surgery in the area. In the emergency room, patient was afebrile, 114/69, heart rate 82, 100% on room air. CBC is significant for pancytopenia with a white blood cell count 0.4, hemoglobin of 9.4, platelet count of 87. Ch emistry show hyponatremia and hypokalemia with a sodium of 125, adjusting of 3.0. She also has low magnesium at 1.3. Liver function tests show elevated bilirubin at 2.6, total protein of 6.0, albumin of 3.1. Covid was negative. Influenza A/B were negative. Coags are negative. Chest x-ray was negative for any acute processes, she'll some mild chronic parenchymal change bilaterally. Abdomen/pelvis CT with concerns for colitis as well as rectovaginal fistula. Blood cultures from 10/17/2021 showed Gram Negative rods. No sensitivities. She is currently on Vanco, cefepime, flagyl. She has had endometrial cancer for approximately 3 years and has been on multiple chemotherapy regimens, but unfortunately it has progressed. She developed some discomfort in the perirectal/sacral area around late 2020. This continued to progress and become more persistent. She also started having some foul-smelling discharge per rectum around 05/05. She had a CT AP ordered by radiation oncology in 06/03/21. This showed an abnormal lesion of low attenuation along the left side of the lower pelvis anterior to the sacrum, measuring 3.6 cm. The patient then had a biopsy of this mass on 06/23/21 showing the current endometrial adenocarcinoma. Referred back to the [facility], Dr. James, to evaluate for surgical salvage. She was not felt to be a candidate for additional radiation given her prior radiation field and location of recurrence. PET scan from 08/11/21 showed uptake at this site, as well as questionably in the left inguinal node. She was then recommended salvage chemotherapy which she wanted to have closer to home. She was therefore seen in Dr. Bowman's office on 08/19/21. Surgical consult placed regarding colovesical fistula. No surgical intervention planned. No immediate plans for endoscopy or further imaging unless symptoms change. Otherwise, they recommend patient follow up with her [facility] oncologist, Dr. James, after discharge to further investigate the possible vaginal fistula. Urology was consulted regarding her hydronephrosis. Urology does not recommend any further urologic intervention given the severity and advanced nature of this disease. Review of Systems Constitutional: Reports as per HPI Past Medical History Past Medical History: Asthma, Cancer, Diabetes Mellitus, Hyperlipidemia, Os teoarthritis (OA), Pneumonia Additional Past Medical History / Comment(s): ENDOMETRIAL CANCER. History of Any Multi-Drug Resistant Organisms: None Reported Past Surgical History: Cholecystectomy, Hysterectomy, Tubal Ligation Past Anesthesia/Blood Transfusion Reactions: No Reported Reaction Past Psychological History: No Psychological Hx Reported Smoking Status: Current every day smoker Past Alcohol Use History: None Reported Past Drug Use History: Marijuana Medications and Allergies Home Medications Medication Instructions Recorded Confirmed Type Albuterol Inhaler [Ventolin Hfa 2 puff INHALATION RT-Q6H PRN 09/03/21 10/15/21 History Inhaler] Atorvastatin [Lipitor] 10 mg PO HS 09/03/21 10/15/21 History Calcium Carbonate [Calcium] 600 mg PO DAILY 09/03/21 10/15/21 History Cholecalciferol (Vitamin D3) 125 mcg PO DAILY 09/03/21 10/15/21 History [Vitamin D3 (125 MCG = 5,000 IU)] HYDROcodone/APAP 5-325MG [Dittmer 1 tab PO Q4H PRN 09/03/21 10/15/21 History 5-325] Ondansetron [Zofran] 4 mg PO Q4H PRN 09/03/21 10/15/21 History Pioglitazone [Actos] 30 mg PO DAILY 09/03/21 10/15/21 History Tiotropium 18 Mcg/Puff [Spiriva] 1 puff INHALATION RT-DAILY 09/03/21 10/15/21 History Dorzolamide HCl/Pf [Dorzolamide 2% 1 drop BOTH EYES BID 10/15/21 10/15/21 History Eye Drop] Gabapentin [Neurontin] 100 mg PO BID 10/15/21 10/15/21 History Glimepiride [Amaryl] 2 mg PO HS 10/15/21 10/15/21 History Glimepiride [Amaryl] 4 mg PO DAILY 10/15/21 10/15/21 History Multivitamins, Thera [Multivitamin 1 tab PO DAILY 10/15/21 10/15/21 History (formulary)] Olopatadine HCl [Patanol 0.1%] 1 drop BOTH EYES BID 10/15/21 10/15/21 History Quinapril/Hydrochlorothiazide 1 tab PO DAILY 10/15/21 10/15/21 History [Quinapril-Hctz 20-25 mg Tab] Allergies Allergy/AdvReac Type Severity Reaction Status Date / Time metformin Allergy Rash/Hives Verified 09/03/21 09:46 Physical Exam Vitals: Vital Signs Temp Pulse Resp BP Pulse Ox FiO2 10/19/21 04:58 98.8 F 104 H 16 82/56 92 L 10/18/21 20:18 98.0 F 101 H 16 84/53 90 L 10/18/21 20:13 93 L 21 10/18/21 20:00 16 10/18/21 12:07 99.7 F H 106 H 20 99/63 92 L Intake and Output 10/18/21 10/19/21 10/19/21 22:59 06:59 14:59 Intake Total 1250 300 Balance 1250 300 Intake: Intake, IV Titration 1250 300 Amount Cefepime 1 gm In Sodium 50 Chloride 0.9% 50 ml @ 12. 5 mls/hr IVPB Q12HR [facility] Rx#:[id number] Dextrose 5%-0.45% NaCl 1, 600 000 ml @ 50 mls/hr IV . Q20H [facility] Rx#:[id number] Potassium Chloride 10 meq 400 100 In Water For Injection 1 100ml.bag @ 100 mls/hr IVPB Q1HR [facility] Rx#: [id number] metroNIDAZOLE-NS PMX 500 200 200 mg In Saline 1 100ml.bag @ 100 mls/hr IVPB Q6HR [facility] Rx#:[id number] Other: Voiding Method Diaper Incontinent # Voids 0 # Bowel Movements 1 General: Well developed, chronically ill appearing, + mild distress HEENT: Head is atraumatic, normocephalic. Conjunctiva yellow, Pupils equal, round and reactive to light bilaterally. CV: Heart regular rhythm, tahcycardic, positive S1 and S2. No clicks, rubs or murmurs. Peripheral pulses equal. 2/4 Lungs: Tachypenic, + labored respirations, +expiratory wheezes Abdomen/GI: Soft. Bowel sounds present in all 4 quadrants. + lower abdominal tenderness. Musculoskeletal/ Extremities: + generalized tenderness Vascular: Radial pulses equal. 2/4.+ generalized edema Skin: Pale, warm and dry, no rashes. Neurologic: Lethargic, confused at times Psychiatric: Appropriate mood and affect. Results CBC & Chem 7: 10/19/21 05:36 10/18/21 09:43 Labs: Abnormal Lab Results - Last 24 Hours (Table) 10/18/21 10/18/21 10/18/21 Range/Units 09:43 12:11 17:31 WBC (4.50-10.00) X 10*3/uL RBC (4.10-5.20) X 10*6/uL Hgb (12.0-15.0) g/dL Hct (37.2-46.3) % RDW (11.5-14.5) % Plt Count (140-440) X 10*3/uL MPV (9.5-12.2) fL Absolute Nucleated RBC (0.00-0.00) X 10*3/uL Metamyelocytes % (0-0) % Neutrophils # (Manual) (2.00-8.90) X 10*3/uL Lymphocytes # (Manual) (0.90-5.00) X 10*3/uL Eosinophils # (Manual) (0.04-0.35) X 10*3/uL NRBC/100 WBC Diff (0.0-0.0) /100 WBCS POC Glucose (mg/dL) 221 H 196 H (70-110) mg/dL Vancomycin Trough 30.9 H* ug/mL 10/18/21 10/19/21 10/19/21 Range/Units 21:35 05:36 07:14 WBC 1.94 L (4.50-10.00) X 10*3/uL RBC 2.40 L (4.10-5.20) X 10*6/uL Hgb 7.5 L (12.0-15.0) g/dL Hct 22.2 L (37.2-46.3) % RDW 15.8 H (11.5-14.5) % Plt Count 90 L (140-440) X 10*3/uL MPV 12.4 H (9.5-12.2) fL Absolute Nucleated RBC 0.02 H (0.00-0.00) X 10*3/uL Metamyelocytes % 1 H (0-0) % Neutrophils # (Manual) 0.62 L (2.00-8.90) X 10*3/uL Lymphocytes # (Manual) 0.49 L (0.90-5.00) X 10*3/uL Eosinophils # (Manual) 0 L (0.04-0.35) X 10*3/uL NRBC/100 WBC Diff 1.0 H (0.0-0.0) /100 WBCS POC Glucose (mg/dL) 161 H 226 H (70-110) mg/dL Vancomycin Trough ug/mL Microbiology - Last 24 Hours (Table) 10/15/21 14:20 Blood Culture Gram Stain - Preliminary Blood 10/15/21 14:36 Blood Culture - Preliminary Blood No Growth after 72 hours Assessment and Plan Assessment: 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 Daughter - Dandelion, Son - Dany * Residence - Mobile home * Who do you reside with - Son * ETOH - Rare * Tobacco - ex-smoker, quit approximately 1 year ago * Illicit drugs - occasional marijuana use Spiritual/Cultural * A spiritual person - Yes (spiritual but not sabianism) * Mandaeism - none * Belong to a particular holiness - no * Beliefs a source of comfort and strength - no * Yarsanism or cultural practices restrictions - no * EOL considerations/rituals? 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 and not able to walk independently * Assistive devices - patient was able to transfer to a wheel chair with her sons assistance * Able to use the bathroom independently - No * Continent - No * Require assistance bathing- Yes * Transportation - Son Psychological/Emotional * Dementia present - No * Insight and judgment - Intact * Good support system - Yes, family and life long friend * Patients goals - Comfort * Desire to keep coming back to the hospital for treatment - No Plan: Symptoms * Pain - Reports lower abdominal pain, continue morphine and neurotin * Fatigue - + generalized weakness and fatigue * SOB - + sob, Currently on 3L NC, continue Ventolin, Atrovent, * Insomnia - Yes, continue Zyprexa and melatonin * N/V - + nausea and vomiting, continue prn Zofran * Anxiety - + anxiety, continue Ativan prn * Depression - Yes * Confusion - Yes * Agitation - No * Hallucinations - No * Appetite/weight loss - +poor appetite, patient currently NPO per oncology * Dysphagia - No * Constipation - No, patient with watery diarrhea * Incontinence - Yes, wears briefs * Itch - No Summary/Goals - Met with the patient, her life-long friend, daughter, and son. Education regarding palliative care and hospice philosophies and services provided. The patient initially was lethargic and not responding to questions. Once her family arrived she seemed to wake up and was able to convey her wishes to them. She stated she was "done" and did not want any more chemotherapy or radiation. Her goal is to be comfortable. They were also informed that per oncology - once her blood counts recover they expect her to improve clinically. Once her status improved they could then discuss further treatment. The patient and her family were again in agreement that they did not want anymore treatment. Her daughter brought in the patient's living will. It was given to the nurse and a copy was placed in the patient's chart. The patient and the family agreed that hospice would be the most appropriate pathway given her wishes. They agreed to a hospice informational meeting. A hospice was notified and a consult was placed. Emotional support was provided. Recommendations - GIP hospice Advanced Directives - Yes, placed in chart Code Status - DNR Thank you for this consult Frances Padilla [facility] Palliative Care [facility] [id number] Email: [email or web address] with Patient: Greater than 30
--- NOTE | 2021-10-19 14:34 | P.PN ---
Subjective Progress Note Date: 10/19/21 Principal diagnosis: Cancer follow-up Patient was sleeping. He cannot provide history secondary to severe lethargy. She is in severe pain. She is very nauseous. Her sister was by the bedside and discussed the plan of care with her. Objective - Vital Signs Vital signs: Vital Signs Temp 96.6 F L 10/19/21 11:35 Pulse 103 H 10/19/21 11:35 Resp 16 10/19/21 11:35 BP 79/47 10/19/21 11:35 Pulse Ox 89 L 10/19/21 11:35 FiO2 21 10/18/21 20:13 Intake & Output 10/18/21 10/19/21 10/19/21 18:59 06:59 18:59 Intake Total 1250 300 Balance 1250 300 Intake: Intake, IV Titration 1250 300 Amount Cefepime 1 gm In Sodium 50 Chloride 0.9% 50 ml @ 12. 5 mls/hr IVPB Q12HR FELICIA Rx#:[id number] Dextrose 5%-0.45% NaCl 1, 600 000 ml @ 50 mls/hr IV . Q20H FELICIA Rx#:[id number] Potassium Chloride 10 meq 400 100 In Water For Injection 1 100ml.bag @ 100 mls/hr IVPB Q1HR FELICIA Rx#: [id number] metroNIDAZOLE-NS PMX 500 200 200 mg In Saline 1 100ml.bag @ 100 mls/hr IVPB Q6HR FELICIA Rx#:[id number] Other: Voiding Method Diaper Diaper Diaper Incontinent Incontinent Incontinent # Voids 1 0 # Bowel Movements 1 1 - Exam Patient is very lethargic and unresponsive. Woke up and started moaning and she was in severe pain. Could not complete exam due to distress. - Labs CBC & Chem 7: 10/19/21 05:36 10/18/21 09:43 Labs: Abnormal Lab Results - Last 24 Hours (Table) 10/18/21 10/18/21 10/19/21 Range/Units 17:31 21:35 05:36 WBC 1.94 L (4.50-10.00) X 10*3/uL RBC 2.40 L (4.10-5.20) X 10*6/uL Hgb 7.5 L (12.0-15.0) g/dL Hct 22.2 L (37.2-46.3) % RDW 15.8 H (11.5-14.5) % Plt Count 90 L (140-440) X 10*3/uL MPV 12.4 H (9.5-12.2) fL Absolute Nucleated RBC 0.02 H (0.00-0.00) X 10*3/uL Metamyelocytes % 1 H (0-0) % Neutrophils # (Manual) 0.62 L (2.00-8.90) X 10*3/uL Lymphocytes # (Manual) 0.49 L (0.90-5.00) X 10*3/uL Eosinophils # (Manual) 0 L (0.04-0.35) X 10*3/uL NRBC/100 WBC Diff 1.0 H (0.0-0.0) /100 WBCS POC Glucose (mg/dL) 196 H 161 H (70-110) mg/dL 10/19/21 Range/Units 07:14 WBC (4.50-10.00) X 10*3/uL RBC (4.10-5.20) X 10*6/uL Hgb (12.0-15.0) g/dL Hct (37.2-46.3) % RDW (11.5-14.5) % Plt Count (140-440) X 10*3/uL MPV (9.5-12.2) fL Absolute Nucleated RBC (0.00-0.00) X 10*3/uL Metamyelocytes % (0-0) % Neutrophils # (Manual) (2.00-8.90) X 10*3/uL Lymphocytes # (Manual) (0.90-5.00) X 10*3/uL Eosinophils # (Manual) (0.04-0.35) X 10*3/uL NRBC/100 WBC Diff (0.0-0.0) /100 WBCS POC Glucose (mg/dL) 226 H (70-110) mg/dL Microbiology - Last 24 Hours (Table) 10/15/21 14:20 Blood Culture Gram Stain - Preliminary Blood 10/15/21 14:36 Blood Culture - Preliminary Blood No Growth after 72 hours Assessment and Plan Plan: Acute on chronic watery Diarrhea Likley related to colitis induced by chemo Pt look dehydrated. Pt is currently NPO Chronic pancytopenia likley related to chemotherapy leukopenia - slight improvement thrombocytopenia Currently on Filgreastim Slightly improved Oncology consulted Mild hypoglycemia due to poor oral intake IV Fluid discontinued due to hospice status Keep BG <200 Bacteremia Blood cultures from 10/17/2021 showed Gram Negative rods. No sensitivities ABX discontinued due to hospice History of endometrial cancer, metastatic -Oncology consult - appreciate recs Rectovaginal fistula -General surgery consulted - no further work up Poor prognosis Nausea and vomiting Multifactorial Recommend PRN antiemetics Hydronephrosis - Urology consult No further work up Hypertension Diabetes Hyperlipidemia Glaucoma Comfort measures only Prognosis is poor Goals of care: Discussed by the bedside today with taila. OPTED for hospice. Hospice team was consulted and the patient was switched to comfort measures only. We will follow.
== END 2021-10-19 12:47 | disposition hospice, inpatient (51) | DRG 393 ==
LOC: EC 13:47 → 5NMEDONC 16:54
PROVIDERS: ADMIT Internal Medicine; ATTEND Internal Medicine
DX: K52.1 Toxic gastroenteritis and colitis (principal); D61.810 Antineoplastic chemotherapy induced pancytopenia; N82.3 Fistula of vagina to large intestine; R45.851 Suicidal ideations; C78.5 Secondary malignant neoplasm of large intestine and rectum; E87.1 Hypo-osmolality and hyponatremia; N13.30 Unspecified hydronephrosis; R78.81 Bacteremia; T45.1X5A Adverse effect of antineoplastic and immunosuppressive drugs, initial encounter; E11.649 Type 2 diabetes mellitus with hypoglycemia without coma; J45.909 Unspecified asthma, uncomplicated; K76.0 Fatty (change of) liver, not elsewhere classified; C54.1 Malignant neoplasm of endometrium; E78.5 Hyperlipidemia, unspecified; E83.42 Hypomagnesemia; E86.0 Dehydration; E87.6 Hypokalemia; E87.8 Other disorders of electrolyte and fluid balance, not elsewhere classified; Z66 Do not resuscitate; Z20.822 Contact with and (suspected) exposure to COVID-19; Z51.5 Encounter for palliative care; F43.20 Adjustment disorder, unspecified; Z87.891 Personal history of nicotine dependence; G89.29 Other chronic pain; H40.9 Unspecified glaucoma; I10 Essential (primary) hypertension; N39.498 Other specified urinary incontinence; Y84.2 Radiological procedure and radiotherapy as the cause of abnormal reaction of the patient, or of later complication, without mention of misadventure at the time of the procedure; Z79.84 Long term (current) use of oral hypoglycemic drugs; Z79.899 Other long term (current) drug therapy; Z90.710 Acquired absence of both cervix and uterus; Z92.3 Personal history of irradiation; Z28.21 Immunization not carried out because of patient refusal; Z71.3 Dietary counseling and surveillance
CPT/HCPCS: 36415; 71045; 71046; 74177; 80048; 80053; 80076; 80202; 82150; 82272; 82607; 82728; 82746; 83036; 83540; 83550; 83605; 83690; 83735; 85025; 85610; 85730; 87040; 87045; 87046; 87324; 87502; 87635; 93005; 94640; 94760; 96365; 96366; 96367; 96368; 96375; 99291

== ENCOUNTER 2021-10-19 12:03 | Inpatient (IN) | payer MEDICAID ==
[2021-10-19] MEDS ORDERED: MORPHINE SULFATE 2 MG/ML SYRINGE IV PRN (12:15)
[2021-10-19] MEDS ORDERED: ACETAMINOPHEN SUPPOSITORY 650 MG SUPP RECTAL PRN (12:15)
[2021-10-19] MEDS ORDERED: ONDANSETRON 4 MG/2 ML VIAL IVP PRN (12:15)
[2021-10-19] MEDS ORDERED: LORazepam 2 MG/ML INJ IV PRN (12:15)
[2021-10-19] MEDS ORDERED: ATROPINE OPHTH SOLN 1% 5ML BTL SUBLINGUAL PRN (12:15)
[2021-10-19] MEDS ORDERED: MORPHINE SULFATE (100 MG/2 ML) 100 MG in SODIUM CHLORIDE 0.9% 100 ML IV SCH (13:00)
[2021-10-19] MEDS ORDERED: SCOPOLAMINE 1 MG/72 HR PATCH TRANSDERM SCH (13:00)
--- NOTE | 2021-10-19 14:26 | P.PN ---
Subjective Progress Note Date: 10/19/21 Patient and family have decided on hospice care Objective - Vital Signs Vital signs: Intake & Output 10/18/21 10/19/21 10/19/21 18:59 06:59 18:59 Weight 85.72 kg - Exam - Constitutional General appearance: Present: mild distress - EENT Eyes: Present: EOMI, PERRLA ENT: Present: hearing grossly normal, normal oropharynx - Respiratory Respiratory: bilateral: CTA - Cardiovascular Rhythm: regular Heart sounds: normal: S1, S2 - Gastrointestinal General gastrointestinal: Present: normal bowel sounds, soft Localized gastrointestinal: tender: diffuse (improved) - Integumentary Integumentary: Present: normal - Neurologic Neurologic: Present: CNII-XII intact - Musculoskeletal Musculoskeletal: Present: generalized weakness, strength equal bilaterally - Psychiatric Psychiatric: Present: A&O x's 3 Assessment and Plan Plan: Assessment and Plan (1) Antineoplastic chemotherapy induced pancytopenia Current Visit: Yes Status: Acute Priority: High Code(s): D61.810 - ANTINEOPLASTIC CHEMOTHERAPY INDUCED PANCYTOPENIA; T45.1X5A - ADVERSE EFFECT OF ANTINEOPLASTIC AND IMMUNOSUP DRUGS, INIT SNOMED Code(s): 888775756819214 (2) Enterocolitis Narrative/Plan: examination is improved today. However, it is expected that bowel inflammation within persistent and WAC normalizes. If still treated continue NPO increase IVF Current Visit: Yes Status: Acute Code(s): K52.9 - NONINFECTIVE GASTROENTERITIS AND COLITIS, UNSPECIFIED SNOMED Code(s): 10368401 (3) Endometrial carcinoma Narrative/Plan: patient and family have decided on hospice care Current Visit: Yes Status: Acute Priority: High Code(s): C54.1 - MALIGNANT NEOPLASM OF ENDOMETRIUM SNOMED Code(s): 681133442
== END 2021-10-19 22:08 | disposition expired | DRG 951 ==
LOC: 5NMEDONC 12:53
PROVIDERS: ADMIT Student in an Organized Health Care Education/Training Program; ATTEND Student in an Organized Health Care Education/Training Program
DX: Z51.5 Encounter for palliative care (principal); D61.810 Antineoplastic chemotherapy induced pancytopenia; E87.1 Hypo-osmolality and hyponatremia; K52.1 Toxic gastroenteritis and colitis; C54.1 Malignant neoplasm of endometrium; R17 Unspecified jaundice; N32.1 Vesicointestinal fistula; C79.9 Secondary malignant neoplasm of unspecified site; Z20.822 Contact with and (suspected) exposure to COVID-19; T45.1X5A Adverse effect of antineoplastic and immunosuppressive drugs, initial encounter; F17.210 Nicotine dependence, cigarettes, uncomplicated; E87.6 Hypokalemia; I10 Essential (primary) hypertension; E11.9 Type 2 diabetes mellitus without complications; E78.5 Hyperlipidemia, unspecified; H40.9 Unspecified glaucoma; J45.909 Unspecified asthma, uncomplicated; M19.90 Unspecified osteoarthritis, unspecified site; Z87.01 Personal history of pneumonia (recurrent); Z90.710 Acquired absence of both cervix and uterus; Z98.51 Tubal ligation status; Z90.49 Acquired absence of other specified parts of digestive tract; X58.XXXA Exposure to other specified factors, initial encounter; Z79.84 Long term (current) use of oral hypoglycemic drugs; Z79.899 Other long term (current) drug therapy